=== PATIENT | male | born 1935 | race Two or more races ===

== ENCOUNTER → 2016-08-27 | Outpatient (CLI) | payer MEDICARE ==
--- NOTE | 2016-09-03 20:36 | CONS ---
DATE OF CONSULTATION: 08/27/2016 This patient is a 80-year-old gentleman who has been evaluated in the sleep center for possible obstructive sleep apnea/hypopnea syndrome. HISTORY OF PRESENT ILLNESS/SLEEP-WAKE EVALUATION: This patient was diagnosed with obstructive sleep apnea in 2014. In 2017 apnea/hypopnea index was ( ) . Patient was recommended usage of CPAP with a pressure of 9 cm of water. Patient used it for more than 4 hours 73% of the time with apnea/hypopnea index 4.8 with borderline leak. He sleeps during the night for about 6 hours with different time. No problem with falling asleep. He has a TV set in the bedroom. He sleeps on the side or back position. No awakenings from sleep. No snoring while using his machine. Universal Sleepiness Scale is only 2. The patient came recently from [place]. Past medical history is positive for: 1. Hypertension. 2. Hyperlipidemia. 3. Bladder cancer. ALLERGIES: DUST AND POLLEN. PAST SURGICAL HISTORY: Status post prostate surgery in March of 2016. MEDICATIONS: 1. Hydrochlorothiazide. 2. Niacin. The patient did not bring his list of medications; Pharmacy to call. SOCIAL HISTORY: The patient quit smoking more than 30 years ago. Alcohol consumption occasional. REVIEW OF SYSTEMS: No fevers. No double vision. No recent chest pain. No shortness of breath. No abdominal pain. No bleeding episodes. No blood in urine. No seizure episodes. FAMILY HISTORY: Hypertension, hyperlipidemia, stroke, arthritis, snoring, headaches, cancer. PHYSICAL EXAM: The patient is a pleasant 80-year-old gentleman without distress. VITAL SIGNS: Blood pressure 86/87, heart rate 79, respiratory rate 18, height 68 , weight 223.8, BMI 34. Neck 18.5 inches in circumference. Temperature 98.4. Oxygen saturation on room air 94%. GENERAL: A pleasant patient without distress. HEENT: PERRLA. EOMI. Evaluation of oropharynx showed tongue protrudes midline. Low position of soft palate. NECK: Supple. No JVD. Thyroid is not palpable. LUNGS: Clear to percussion and to auscultation. Good air exchange. No wheezing or rhonchi. HEART: S1, S2 regular. No murmurs, gallops or rubs. ABDOMEN: Obese. EXTREMITIES: No clubbing or cyanosis. ARCHITECT MANAGER: Awake, alert and oriented x3. Cranial nerves 2 through 7 are intact. There is no fasciculation or atrophy noted. No focal deficits observed. IMPRESSION: 1. Obstructive sleep apnea/hypopnea syndrome. Patient is on treatment with CPAP at 9 cm of water, and recent reading from his machine indicated good compliance with treatment and efficacy of treatment. 2. Obesity. 3. Hyperlipidemia. 4. Hypertension. 5. History of bladder carcinoma. 6. Status post prostate surgery. 7. Allergy to dust, pollen, ragweed. PLAN: 1. Continue treatment with CPAP every night for the whole night. 2. Losing weight. 3. Sleep hygiene with regular time in bed for at least 8 hours. 4. No driving if feeling any sleepiness. 5. Prescription for all necessary CPAP supplies. 6. Follow-up visit in 6 months. Thank you for allowing me to participate in the management of your patient. Sincerely, Joseph Hay. , PhD, FAASM. Diplomat of [place] [employer], Sleep Medicine Board by [place] [employer] [place] [employer] Abrasive Grinder of [facility] [place] [facility]
== END | disposition home or self-care (01) ==
LOC: SLEEP 13:19
PROVIDERS: ATTEND Internal Medicine
DX: G47.33 Obstructive sleep apnea (adult) (pediatric) (principal); E66.9 Obesity, unspecified; E78.5 Hyperlipidemia, unspecified; I10 Essential (primary) hypertension; Z85.51 Personal history of malignant neoplasm of bladder; Z91.048 Other nonmedicinal substance allergy status; Z79.899 Other long term (current) drug therapy; Z87.891 Personal history of nicotine dependence
CPT/HCPCS: 99201

== ENCOUNTER → 2018-09-22 | Outpatient (CLI) | payer MEDICARE ==
--- NOTE | 2018-09-22 19:26 | PN ---
PROGRESS NOTE DATE OF SERVICE: 09/22/2018 This 83-year-old gentleman who has been followed in the Sleep Center for treatment of obstructive sleep apnea-hypopnea syndrome. The patient continued to use CPAP equipment, but sometimes has problems with the mask. [place] Sleepiness Scale today is 4. I checked CPAP unit. CPAP pressure is 9 cm of water. Usage is 20/30 nights. Average usage is 3.7 hours. Leak is 25 L/minute. Apnea-hypopnea index for the last month only 2.4, which is normal. Mask is old more than 2 years. MEDICATIONS: Hydrochlorothiazide, niacin. PHYSICAL EXAM: Patient in no distress. BP 142/88, HR 70, RR 16, height 5 feet 7 inches, weight 231 pounds. Body mass index 35.6, temperature 98.9, oxygen saturation at room air 95%. HEENT: Oropharynx low position of soft palate. Mallampati 3. Neck Supple, no JVD. Thyroid is not palpable. LUNGS Clear to percussion and to auscultation. Good air exchange. No wheezing or rhonchi. HEART S1, S2 regular. No murmurs, gallops, or rubs. ABDOMEN: Obese. Soft and nontender. Bowel sounds are present. No organomegaly appreciated. EXTREMITIES No clubbing or cyanosis. PET SUPPLIES SALESPERSON Awake, alert, and oriented X3. Cranial nerves 2 to 7 intact. There is no fasciculation or atrophy. noted. No focal deficits observed. IMPRESSION: 1. Obstructive sleep apnea-hypopnea syndrome. The patient continues usage of the CPAP but had some problems with the mask, Mask is old. Normal aspiration on CPAP. 2. Obesity. 3. Hyperlipidemia. 4. Hypertension. 5. History of bladder carcinoma. 6. Status post prostate surgery. 7. ALLERGY TO DUST, POLLEN AND RED MEAT. PLAN: 1. Prescription for all necessary CPAP supplies including full-face mask. Presently, patient using Simplus medium size, tube filters to continue using CPAP equipment every night. 2. Losing weight. 3. Sleep hygiene with regular time bed for at least 8 hours. 4. No driving if feeling sleepiness. Thank you very much for allowing me to participate in management of your patient. Sincerely, Joseph Hay MD, PhD, FAASM Diplomat of [employer] [employer] [place] [employer] Lead Neurodiagnostic Technologist of [facility] [place] MMODL / IJN: [id number] /
== END | disposition home or self-care (01) ==
LOC: SLEEP 14:05
PROVIDERS: ATTEND Internal Medicine
DX: G47.33 Obstructive sleep apnea (adult) (pediatric) (principal); E66.9 Obesity, unspecified; E78.5 Hyperlipidemia, unspecified; I10 Essential (primary) hypertension; J30.89 Other allergic rhinitis; J30.1 Allergic rhinitis due to pollen; Z68.35 Body mass index [BMI] 35.0-35.9, adult; Z85.51 Personal history of malignant neoplasm of bladder; Z99.89 Dependence on other enabling machines and devices; Z98.890 Other specified postprocedural states; Z79.899 Other long term (current) drug therapy; Z91.018 Allergy to other foods

== ENCOUNTER → 2020-11-13 | Outpatient (CLI) | payer MEDICARE ==
--- NOTE | 2020-11-13 20:13 | SFUN ---
SLEEP CENTER FOLLOW UP NOTE DATE OF SERVICE: 11/13/2020 This 85-year-old gentleman has been followed in Sleep Center for treatment of obstructive sleep apnea-hypopnea syndrome. I saw the patient about 2 years ago. He continues to use his CPAP equipment every night but recently has had problems with his machine. The machine is not working well. There is some sign on the screen that the machine is not working; there is some mistake there. [place] Sleepiness Scale is 3. I checked his CPAP unit. It is very noisy. Pressure is 9 cm of water. For the last month, usage is 14/30 nights and 5/30 nights for more than 4 hours, average 3.7 hours per night. Leak is 2 L/minute. Apnea-hypopnea index is 5.0, which is borderline. MEDICATIONS: Hydrochlorothiazide, niacin, simvastatin. PHYSICAL EXAMINATION: GENERAL: Pleasant patient in no distress. VITAL SIGNS: BP 122/77, HR 79, RR 15, height 5 feet 8-1/2 inches, weight 233.0 pounds, temperature 97.3, oxygen saturation at room air 95%. Body mass index 34.9. HEENT: PERRLA, EOMI, evaluation of oropharynx showed tongue protrudes midline. Low position of soft palate; Mallampati III. NECK: Supple, no JVD. Thyroid is not palpable. LUNGS: Clear to percussion and to auscultation. Good air exchange. No wheezing or rhonchi. HEART: S1, S2 regular. No murmurs, gallops, or rubs. ABDOMEN: Obese. EXTREMITIES: No clubbing or cyanosis. DISPOSAL MAN: Awake, alert, and oriented X3. Cranial nerves 2 to 7 intact. There is no fasciculation or atrophy. noted. No focal deficits observed. IMPRESSION: 1. Obstructive sleep apnea-hypopnea syndrome. The patient's CPAP unit does not work well and is very noisy. While able to use the machine, the apnea-hypopnea index is borderline at 5.0 with the pressure 9 cm of water. 2. Obesity. 3. Hyperlipidemia. 4. Hypertension. 5. History of bladder carcinoma. 6. Status post prostate surgery. 7. Allergy to dust, pollen. PLAN: 1. Prescription to repair or replace CPAP unit with a new unit with automatic regimen of pressure 5-12 cm of water. 2. Patient will continue to use PAP equipment every night for the whole night. 3. Sleep hygiene with regular time in bed for at least 7-1/2 to 8 hours. 4. Precautions related to driving. No driving if feeling sleepiness. 5. I will maintain all necessary prescription for PAP supplies including mask, tube, filters. 6. Watching weight. 7. Follow-up visit in 6 months or earlier if patient has any problems. Thank you very much for allowing me to participate in the management of your patient. Sincerely, Joseph Hay MD, PhD, FAASM Diplomat of [place] [employer] Sleep Medicine Board of [place] [employer] Medicine Machine Wedger of [facility] [place] MMODL / IJN: [id number] /
== END ==
LOC: SLEEP 13:05
PROVIDERS: ATTEND Internal Medicine
DX: G47.33 Obstructive sleep apnea (adult) (pediatric) (principal); E66.9 Obesity, unspecified; E78.5 Hyperlipidemia, unspecified; I10 Essential (primary) hypertension; Z85.51 Personal history of malignant neoplasm of bladder; Z98.890 Other specified postprocedural states; Z91.048 Other nonmedicinal substance allergy status; Z99.89 Dependence on other enabling machines and devices; Z68.34 Body mass index [BMI] 34.0-34.9, adult

== ENCOUNTER 2020-12-04 20:39 | Inpatient (IN) | payer MEDICARE ==
[2020-12-04] MEDS ORDERED: SODIUM CHLORIDE 0.9% 1,000 ML IV STA (21:18)
[2020-12-04] MEDS ORDERED: ONDANSETRON 4 MG/2 ML VIAL IVP STA (21:19)
--- NOTE | 2020-12-04 21:27 | ED ---
Nausea/Vomiting/Diarrhea HPI - General Chief complaint: Nausea/Vomiting/Diarrhea Stated complaint: High BP Time Seen by Provider: 12/04/20 21:11 Source: patient, RN notes reviewed Mode of arrival: wheelchair Limitations: no limitations - History of Present Illness Initial comments: Patient ate 85-year-old male presented to the ER for nausea vomiting. Patient states he has been feeling under the weather for past week with chills and fever like symptoms, with acute episode of nausea and vomiting today around 4:30. Patient reports feeling shaking, dizziness, sweating with generalized weakness during episode with relief after vomiting episode. Patient reports generalized fullness in LLQ of abdomen. Patient's is possible sick contact with cold- like symptoms for 1 week. - Related Data Home Medications Medication Instructions Recorded Confirmed Cholecalciferol (Vitamin D3) 125 mcg PO BID 12/04/20 12/04/20 [Vitamin D3 (125 MCG = 5,000 IU)] Cyanocobalamin (Vitamin B-12) 1,000 mcg PO DAILY 12/04/20 12/04/20 [Vitamin B-12] Docusate [Colace] 100 mg PO DAILY 12/04/20 12/04/20 Dutasteride 0.5 mg PO DAILY 12/04/20 12/04/20 Glucosam/Itz-Msm1/C/Tyrese/Bosw 1 tab PO BID 12/04/20 12/04/20 [Pgggmzfayhy-Qnfsmccemyc-MDQ Tb] Latanoprost [Xalatan 0.005%] 1 drop BOTH EYES HS 12/04/20 12/04/20 Lisinopril [Prinivil] 10 mg PO DAILY 12/04/20 12/04/20 Magnesium Oxide [Arambula] 500 mg PO DAILY 12/04/20 12/04/20 [place]-3 Fatty Acids [[place]-3] 1,000 mg PO DAILY 12/04/20 12/04/20 Simvastatin [Zocor] 40 mg PO HS 12/04/20 12/04/20 Timolol 0.5% Ophth Gel Forming 1 drop BOTH EYES DAILY 12/04/20 12/04/20 [Timoptic-Xe 0.5% Gel Form] Zinc 50 mg PO DAILY 12/04/20 12/04/20 hydroCHLOROthiazide [Hydrodiuril] 12.5 mg PO DAILY 12/04/20 12/04/20 Allergies Allergy/AdvReac Type Severity Reaction Status Date / Time No Known Allergies Allergy Verified 12/04/20 23:27 Review of Systems ROS Statement: Those systems with pertinent positive or pertinent negative responses have been documented in the HPI. ROS Other: All systems not noted in ROS Statement are negative. Past Medical History Past Medical History: Cancer, COPD, Hyperlipidemia, Hypertension, Sleep Apnea/CPAP/BIPAP History of Any Multi-Drug Resistant Organisms: None Reported Past Surgical History: Bladder Surgery Past Psychological History: No Psychological Hx Reported Smoking Status: Never smoker Past Alcohol Use History: None Reported Past Drug Use History: None Reported General Exam Limitations: no limitations General appearance: alert, in no apparent distress Respiratory exam: Present: normal lung sounds bilaterally. Absent: respiratory distress, wheezes, rales, rhonchi, stridor Cardiovascular Exam: Present: regular rate, normal rhythm, normal heart sounds. Absent: systolic murmur, diastolic murmur, rubs, gallop, clicks GI/Abdominal exam: Present: tenderness (LLQ) Neurological exam: Present: alert, oriented X3, CN II-XII intact Skin exam: Present: warm, dry, intact, normal color. Absent: rash Course Vital Signs 12/04/20 12/04/20 12/04/20 20:49 21:45 22:00 Temperature 99.6 F Pulse Rate 110 H 94 96 Respiratory 16 22 22 Rate Blood Pressure 90/62 98/40 88/53 O2 Sat by Pulse 91 L 95 95 Oximetry 12/04/20 12/04/20 23:00 23:54 Temperature Pulse Rate 96 75 Respiratory 20 18 Rate Blood Pressure 103/70 99/61 O2 Sat by Pulse 96 97 Oximetry Medical Decision Making - Medical Decision Making 85-year-old male presented for generalized weakness, not feeling well, episode of vomiting. Patient's found to have urinary tract infection, mild hypotension, lactic acidosis. Patient wouldn't admitted for IV antibiotics UTI sepsis. Fluids were started at ideal body weight of [address] shows evidence of very enlarged prostate family states that he's had a biopsy is follow closely with urology. - Lab Data Result diagrams: 12/04/20 21:36 12/04/20 21:36 Lab Results 12/04/20 12/04/20 12/04/20 Range/Units 21:36 21:36 21:36 WBC 12.0 H (3.8-10.6) k/uL RBC 5.48 (4.30-5.90) m/uL Hgb 15.5 (13.0-17.5) gm/dL Hct 45.6 (39.0-53.0) % MCV 83.2 (80.0-100.0) fL MCH 28.3 (25.0-35.0) pg MCHC 34.0 (31.0-37.0) g/dL RDW 14.2 (11.5-15.5) % Plt Count 188 (150-450) k/uL MPV 8.6 Neutrophils % (Manual) 77 % Band Neuts % (Manual) 14 % Lymphocytes % (Manual) 4 % Monocytes % (Manual) 3 % Basophils % (Manual) 2 % Neutrophils # (Manual) 10.90 H (1.3-7.7) k/uL Lymphocytes # (Manual) 0.48 L (1.0-4.8) k/uL Monocytes # (Manual) 0.36 (0-1.0) k/uL Basophils # (Manual) 0.24 H (0-0.2) k/uL Nucleated RBCs 0 (0-0) /100 WBC Manual Slide Review Performed RBC Morphology Normal PT 11.0 (9.0-12.0) sec INR 1.0 (<1.2) APTT 22.2 (22.0-30.0) sec Sodium (137-145) mmol/L Potassium (3.5-5.1) mmol/L Chloride (98-107) mmol/L Carbon Dioxide (22-30) mmol/L Anion Gap mmol/L BUN (9-20) mg/dL Creatinine (0.66-1.25) mg/dL Est GFR (CKD-EPI)AfAm (>60 ml/min/1.73 sqM) Est GFR (CKD-EPI)NonAf (>60 ml/min/1.73 sqM) Glucose (74-99) mg/dL Plasma Lactic Acid Andrew (0.7-2.0) mmol/L Calcium (8.4-10.2) mg/dL Magnesium (1.6-2.3) mg/dL Total Bilirubin (0.2-1.3) mg/dL AST (17-59) U/L ALT (4-49) U/L Alkaline Phosphatase (38-126) U/L Troponin I (0.000-0.034) ng/mL Total Protein (6.3-8.2) g/dL Albumin (3.5-5.0) g/dL Urine Color Yellow Urine Appearance Cloudy (Clear) Urine pH 5.5 (5.0-8.0) Ur Specific [place] 1.017 (1.001-1.035) Urine Protein 1+ H (Negative) Urine Glucose (UA) Negative (Negative) Urine Ketones Trace H (Negative) Urine Blood Moderate H (Negative) Urine Nitrite Positive (Negative) Urine Bilirubin Negative (Negative) Urine Urobilinogen <2.0 (<2.0) mg/dL Ur Leukocyte Esterase Large H (Negative) Urine RBC 41 H (0-5) /hpf Urine WBC >182 H (0-5) /hpf Urine WBC Clumps Moderate H (None) /hpf Ur Squamous Epith Cells 2 (0-4) /hpf Amorphous Sediment Rare H (None) /hpf Urine Bacteria Many H (None) /hpf Hyaline Casts 12 H (0-2) /lpf Urine Mucus Occasional H (None) /hpf Coronavirus (PCR) (Not Detectd) 12/04/20 12/04/20 12/04/20 Range/Units 21:36 21:36 21:36 WBC (3.8-10.6) k/uL RBC (4.30-5.90) m/uL Hgb (13.0-17.5) gm/dL Hct (39.0-53.0) % MCV (80.0-100.0) fL MCH (25.0-35.0) pg MCHC (31.0-37.0) g/dL RDW (11.5-15.5) % Plt Count (150-450) k/uL MPV Neutrophils % (Manual) % Band Neuts % (Manual) % Lymphocytes % (Manual) % Monocytes % (Manual) % Basophils % (Manual) % Neutrophils # (Manual) (1.3-7.7) k/uL Lymphocytes # (Manual) (1.0-4.8) k/uL Monocytes # (Manual) (0-1.0) k/uL Basophils # (Manual) (0-0.2) k/uL Nucleated RBCs (0-0) /100 WBC Manual Slide Review RBC Morphology PT (9.0-12.0) sec INR (<1.2) APTT (22.0-30.0) sec Sodium 135 L (137-145) mmol/L Potassium 3.7 (3.5-5.1) mmol/L Chloride 100 (98-107) mmol/L Carbon Dioxide 26 (22-30) mmol/L Anion Gap 9 mmol/L BUN 28 H (9-20) mg/dL Creatinine 1.24 (0.66-1.25) mg/dL Est GFR (CKD-EPI)AfAm 62 (>60 ml/min/1.73 sqM) Est GFR (CKD-EPI)NonAf 53 (>60 ml/min/1.73 sqM) Glucose 100 H (74-99) mg/dL Plasma Lactic Acid Andrew 2.7 H* (0.7-2.0) mmol/L Calcium 10.2 (8.4-10.2) mg/dL Magnesium 1.8 (1.6-2.3) mg/dL Total Bilirubin 0.9 (0.2-1.3) mg/dL AST 137 H (17-59) U/L ALT 69 H (4-49) U/L Alkaline Phosphatase 68 (38-126) U/L Troponin I 0.012 (0.000-0.034) ng/mL Total Protein 6.9 (6.3-8.2) g/dL Albumin 4.0 (3.5-5.0) g/dL Urine Color Urine Appearance (Clear) Urine pH (5.0-8.0) Ur Specific [place] (1.001-1.035) Urine Protein (Negative) Urine Glucose (UA) (Negative) Urine Ketones (Negative) Urine Blood (Negative) Urine Nitrite (Negative) Urine Bilirubin (Negative) Urine Urobilinogen (<2.0) mg/dL Ur Leukocyte Esterase (Negative) Urine RBC (0-5) /hpf Urine WBC (0-5) /hpf Urine WBC Clumps (None) /hpf Ur Squamous Epith Cells (0-4) /hpf Amorphous Sediment (None) /hpf Urine Bacteria (None) /hpf Hyaline Casts (0-2) /lpf Urine Mucus (None) /hpf Coronavirus (PCR) (Not Detectd) 12/04/20 Range/Units 21:36 WBC (3.8-10.6) k/uL RBC (4.30-5.90) m/uL Hgb (13.0-17.5) gm/dL Hct (39.0-53.0) % MCV (80.0-100.0) fL MCH (25.0-35.0) pg MCHC (31.0-37.0) g/dL RDW (11.5-15.5) % Plt Count (150-450) k/uL MPV Neutrophils % (Manual) % Band Neuts % (Manual) % Lymphocytes % (Manual) % Monocytes % (Manual) % Basophils % (Manual) % Neutrophils # (Manual) (1.3-7.7) k/uL Lymphocytes # (Manual) (1.0-4.8) k/uL Monocytes # (Manual) (0-1.0) k/uL Basophils # (Manual) (0-0.2) k/uL Nucleated RBCs (0-0) /100 WBC Manual Slide Review RBC Morphology PT (9.0-12.0) sec INR (<1.2) APTT (22.0-30.0) sec Sodium (137-145) mmol/L Potassium (3.5-5.1) mmol/L Chloride (98-107) mmol/L Carbon Dioxide (22-30) mmol/L Anion Gap mmol/L BUN (9-20) mg/dL Creatinine (0.66-1.25) mg/dL Est GFR (CKD-EPI)AfAm (>60 ml/min/1.73 sqM) Est GFR (CKD-EPI)NonAf (>60 ml/min/1.73 sqM) Glucose (74-99) mg/dL Plasma Lactic Acid Andrew (0.7-2.0) mmol/L Calcium (8.4-10.2) mg/dL Magnesium (1.6-2.3) mg/dL Total Bilirubin (0.2-1.3) mg/dL AST (17-59) U/L ALT (4-49) U/L Alkaline Phosphatase (38-126) U/L Troponin I (0.000-0.034) ng/mL Total Protein (6.3-8.2) g/dL Albumin (3.5-5.0) g/dL Urine Color Urine Appearance (Clear) Urine pH (5.0-8.0) Ur Specific [place] (1.001-1.035) Urine Protein (Negative) Urine Glucose (UA) (Negative) Urine Ketones (Negative) Urine Blood (Negative) Urine Nitrite (Negative) Urine Bilirubin (Negative) Urine Urobilinogen (<2.0) mg/dL Ur Leukocyte Esterase (Negative) Urine RBC (0-5) /hpf Urine WBC (0-5) /hpf Urine WBC Clumps (None) /hpf Ur Squamous Epith Cells (0-4) /hpf Amorphous Sediment (None) /hpf Urine Bacteria (None) /hpf Hyaline Casts (0-2) /lpf Urine Mucus (None) /hpf Coronavirus (PCR) Not Detected (Not Detectd) Disposition Clinical Impression: UTI (urinary tract infection), Sepsis Disposition: ADMITTED IP TO THIS [facility] Condition: Fair Referrals: Ant Crowder MD [Primary Care Provider] - 1-2 days
[2020-12-04 22:06] LABS: Calcium 10.2 mg/dL (8.4-10.2); Magnesium 1.8 mg/dL (1.6-2.3); Potassium 3.7 mmol/L (3.5-5.1); Total Bilirubin 0.9 mg/dL (0.2-1.3); Total Protein 6.9 g/dL (6.3-8.2)
[2020-12-04 22:11] LABS: Partial Thromboplastin Time 22.2 sec (22.0-30.0)
[2020-12-04 22:27] LABS: HCT 45.6 % (39.0-53.0); HGB 15.5 gm/dL (13.0-17.5); MCH 28.3 pg (25.0-35.0); MCV 83.2 fL (80.0-100.0); Mean Platelet Volume 8.6; Platelet Count 188 k/uL (150-450); RBC 5.48 m/uL (4.30-5.90); RDW 14.2 % (11.5-15.5)
--- NOTE | 2020-12-04 22:46 | XR ---
EXAMINATION TYPE: XR chest 2V DATE OF EXAM: 12/04/2020 COMPARISON: NONE HISTORY: Weakness. Nausea. TECHNIQUE: 2 views FINDINGS: Heart is normal. There is some mild subsegmental atelectasis left lung base. There are ches t leads. There are no hilar masses. IMPRESSION: Subsegmental atelectasis at the left lung base. Normal heart.
[2020-12-04] MEDS ORDERED: SODIUM CHLORIDE 0.9% 1,000 ML IV ONE (23:29)
[2020-12-04 23:30] LABS: Band Neutrophils % 14 %; Basophils # (M) 0.24 k/uL (0-0.2); Lymphocytes # (M) 0.48 k/uL (1.0-4.8); Monocytes # (M) 0.36 k/uL (0-1.0); Neutrophils % (M) 77 %; Nucleated Red Blood Cells 0 /100 WBC (0-0); Total Cells Counted 100
[2020-12-04 23:39] LABS: Amorphous Sediment,Urine Rare /hpf; Appearance,Urine Cloudy (Clear); Bacteria,Urine Many /hpf; Bilirubin,Urine Negative (Negative); Blood,Urine Moderate (Negative); Color,Urine Yellow; Glucose,Urine (UA) Negative (Negative); Hyaline Casts,Urine 12 /lpf (0-2); Ketones,Urine Trace (Negative); Leukocyte Esterase,Urine Large (Negative); Mucus,Urine Occasional /hpf; Nitrite,Urine Positive (Negative); PH, Urine 5.5 (5.0-8.0); Protein,Urine 1+ (Negative); RBC,Urine 41 /hpf (0-5); Specific Gravity,Urine 1.017 (1.001-1.035); Squamous Epithelial Cell,Urine 2 /hpf (0-4); Urobilinogen,Urine <2.0 mg/dL (<2.0); WBC,Urine >182 /hpf (0-5)
[2020-12-05] MEDS: SODIUM CHLORIDE 0.9% 1,000 ML IV SCH ×4 (00:12→21:23)
--- NOTE | 2020-12-05 00:17 | CT ---
EXAMINATION TYPE: CT abdomen pelvis w con DATE OF EXAM: 12/04/2020 COMPARISON: HISTORY: stomach upset. hx of bladder cx CT DLP: 1917.2 mGycm Automated exposure control for dose reduction was used. CONTRAST: Performed with IV Contrast, patient injected with 80 mL of Isovue 300. Images obtained from the diaphragm to the floor the pelvis with IV contrast. There is mild subsegmental atelectasis at the lung bases. There is no pericardial effusion. There is no pleural effusion. There is some mild fatty infiltration of the liver. Spleen stomach pancreas gallbladder appear intact . The bile ducts are nondilated. There is no adrenal mass. There is small hiatal hernia. Kidneys show satisfactory contrast opacificat ion. There is 1 cm calculus in the left renal pelvis. There is no hydronephrosis. Ureters are not dil ated. There are left-sided renal cortical cysts that measure up to 2 cm. There is no retroperitoneal adenopathy. Appendix appears normal. There is marked enlargement of the prostate that measures 9 cm. There is small right-sided inguinal hernia that contains fat. There is no free fluid in the pelvis. There is no mesenteric edema. There is no ascites or free air. There is no bowel obstruction. There i s minimal urinary bladder wall thickening. There is some mild rectal wall thickening at the anus. There is no evidence of focal bone destruction. Lumbar vertebra appear intact. There is multilevel sp ondylotic changes in the lumbar spine. There is no compression fracture. There is mild multilevel hyp ertrophic facet arthropathy. The bony pelvis is intact. The hip joints are intact. IMPRESSION: Markedly enlarged prostate suggestive of tumor. Mild urinary bladder wall thickening suggestive of so me nonspecific cystitis. Nonobstructing left renal calculus. Mild sigmoid diverticulosis without diverticulitis. Mild anal wall thickening. There is possible mild anal prolapse. Mild fatty infiltration of the liver. Subsegmental mild atelectasis at the lung bases.
[2020-12-05] MEDS ORDERED: NALOXONE 0.4 MG/ML 1 ML VIAL IV PRN (00:18)
[2020-12-05] MEDS ORDERED: ONDANSETRON 4 MG/2 ML VIAL IVP PRN (00:18)
[2020-12-05] MEDS ORDERED: ACETAMINOPHEN TAB 325 MG TAB PO PRN (00:18)
[2020-12-05] MEDS: MAGNESIUM OXIDE 400 MG TAB PO SCH (08:35)
[2020-12-05] MEDS: FINASTERIDE 5 MG TAB PO SCH (08:35)
[2020-12-05] MEDS: ZINC SULFATE 220 MG CAP PO SCH (08:35)
[2020-12-05] MEDS: DOCUSATE 100 MG CAP PO SCH (08:35)
[2020-12-05] MEDS: lisinopriL 10 MG TAB PO SCH (08:35)
[2020-12-05] MEDS: TIMOLOL 0.5% OPHTH DROPS 5 ML BTL BOTH EYES SCH ×2 (08:36→20:53)
[2020-12-05] MEDS: hydroCHLOROthiazide 12.5 MG CAP PO SCH (08:37)
[2020-12-05 08:56] LABS: Albumin 3.4 g/dL (3.5-5.0); Albumin/Globulin Ratio 1.2; Bilirubin,Unconjugated 0.3 mg/dL (0.0-1.1); Globulin 2.8 g/dL; Total Bilirubin 0.8 mg/dL (0.2-1.3); Total Protein 6.2 g/dL (6.3-8.2)
[2020-12-05] MEDS ORDERED: NON FORMULARY DRUG (Omega-3 Fatty Acids [Omega-3] 1,000 MG Capsule) PO SCH (09:00)
--- NOTE | 2020-12-05 11:43 | P.HPIM ---
History of Present Illness This is a pleasant 85 years old male with past medical history of COPD, Hyperlipidemia, Hypertension, Sleep Apnea/CPAP/BIPAP Patient presents because of shaking and chills of one-day duration. He vomited twice in the car coming to the hospital with no blood. He denies abdominal pain. He had no bowel movement since yesterday. Patient reports difficulty in voiding with dysuria for the last 3-4 days. No abdominal pain or back pain. He denies dyspnea. Has chronic cough with phlegm with no recent worsening as he describes. He denies chest pain He denies smoking, alcohol or illicit drugs He knows about his enlarged prostate and he follows up with urologist on [address] office Walking with no difficulties with no focal Vitals are stable. Blood pressure is low normal He uses CPAP machine at home but it is broken recently Labs showing mild leukocytosis of 12.0 INR is normal, BMP is unremarkable. Liver enzymes are slightly elevated with AST 137 and ALT 69 Urine analysis is suspicious for infection. Urine culture is pending. Coronavirus not detected CT of the abdomen and pelvis: Markedly enlarged prostate suggestive of a tumor. Mild urinary bladder wall thickening suggestive of some nonspecific cystitis. Non-obstructing left renal calculus EKG shows sinus tachycardia and 110 with first degree AV block and no significant ST-T changes. QTC is 433 chest x-ray: Atelectasis in the left lung base In the emergency room patient received ceftriaxone and normal saline Review of Systems CONSTITUTIONAL: No fever, no malaise, no fatigue. HEENT: No recent visual problems or hearing problems. Denied any sore throat. CARDIOVASCULAR: No orthopnea, PND, no palpitations, no syncope. PULMONARY: No shortness of breath, no cough, no hemoptysis. GASTROINTESTINAL: No diarrhea, no nausea, no vomiting, no abdominal pain. Normoactive bowel sounds. NEUROLOGICAL: No headaches, no weakness, no numbness. HEMATOLOGICAL: Denies any bleeding or petechiae. GENITOURINARY: Denies any burning micturition, frequency, or urgency. MUSCULOSKELETAL/RHEUMATOLOGICAL: Denies any joint pain, swelling, or any muscle pain. ENDOCRINE: Denies any polyuria or polydipsia. Past Medical History Past Medical History: Cancer, COPD, Hyperlipidemia, Hypertension, Sleep Apnea/CPAP/BIPAP History of Any Multi-Drug Resistant Organisms: None Reported Past Surgical History: Bladder Surgery Past Anesthesia/Blood Transfusion Reactions: No Reported Reaction Past Psychological History: No Psychological Hx Reported Smoking Status: Former smoker Past Alcohol Use History: None Reported Past Drug Use History: None Reported - Past Family History Daughter(s) Family Medical History: Cancer Additional Family Medical History / Comment(s): Breast cancer Medications and Allergies Home Medications Medication Instructions Recorded Confirmed Type Cholecalciferol (Vitamin D3) 125 mcg PO BID 12/04/20 12/04/20 History [Vitamin D3 (125 MCG = 5,000 IU)] Cyanocobalamin (Vitamin B-12) 1,000 mcg PO DAILY 12/04/20 12/04/20 History [Vitamin B-12] Docusate [Colace] 100 mg PO DAILY 12/04/20 12/04/20 History Dutasteride 0.5 mg PO DAILY 12/04/20 12/04/20 History Glucosam/Itz-Msm1/C/Tyrese/Bosw 1 tab PO BID 12/04/20 12/04/20 History [Ikyycnyzbjs-Lzokujdarpj-LON Tb] Latanoprost [Xalatan 0.005%] 1 drop BOTH EYES HS 12/04/20 12/04/20 History Lisinopril [Prinivil] 10 mg PO DAILY 12/04/20 12/04/20 History Magnesium Oxide [Arambula] 500 mg PO DAILY 12/04/20 12/04/20 History [place]-3 Fatty Acids [[place]-3] 1,000 mg PO DAILY 12/04/20 12/04/20 History Simvastatin [Zocor] 40 mg PO HS 12/04/20 12/04/20 History Timolol 0.5% Ophth Gel Forming 1 drop BOTH EYES DAILY 12/04/20 12/04/20 History [Timoptic-Xe 0.5% Gel Form] Zinc 50 mg PO DAILY 12/04/20 12/04/20 History hydroCHLOROthiazide [Hydrodiuril] 12.5 mg PO DAILY 12/04/20 12/04/20 History Allergies Allergy/AdvReac Type Severity Reaction Status Date / Time No Known Allergies Allergy Verified 12/04/20 23:27 Physical Exam Vitals: Vital Signs Temp Pulse Pulse Resp BP BP Pulse Ox 12/05/20 04:45 98.2 F 83 18 105/64 95 12/05/20 03:19 16 12/05/20 02:00 97.4 F L 94 16 99/63 90 L 12/05/20 01:30 98.6 F 83 19 97/57 97 12/04/20 23:54 75 18 99/61 97 12/04/20 23:00 96 20 103/70 96 12/04/20 22:00 96 22 88/53 95 12/04/20 21:45 94 22 98/40 95 12/04/20 20:49 99.6 F 110 H 16 90/62 91 L Intake and Output 12/04/20 12/05/20 12/05/20 22:59 06:59 14:59 Intake Total 540 Balance 540 Intake: Intake, IV Titration 540 Amount Sodium Chloride 0.9% 1, 540 000 ml @ 130 mls/hr IV . Q7H42M [facility] Rx#:[id number] Other: # Voids 1 Weight 102.058 kg 102.058 kg GENERAL: The patient is alert and oriented x3, not in any acute distress. Well developed, well nourished. HEENT: Pupils are round and equally reacting to light. EOMI. No scleral icterus. No conjunctival pallor. Normocephalic, atraumatic. No pharyngeal erythema. No thyromegaly. CARDIOVASCULAR: S1 and S2 present. No murmurs, rubs, or gallops. PULMONARY: Chest is clear to auscultation, no wheezing or crackles. ABDOMEN: Soft, nontender, nondistended, normoactive bowel sounds. No palpable organomegaly. MUSCULOSKELETAL: No joint swelling or deformity. EXTREMITIES: No cyanosis, clubbing, or pedal edema. NEUROLOGICAL: Gross neurological examination did not reveal any focal deficits. SKIN: No rashes. No petechiae Results CBC & Chem 7: 12/04/20 21:36 12/04/20 21:36 Labs: Abnormal Lab Results - Last 24 Hours (Table) 12/04/20 12/04/20 12/04/20 Range/Units 21:36 21:36 21:36 WBC 12.0 H (3.8-10.6) k/uL Neutrophils # (Manual) 10.90 H (1.3-7.7) k/uL Lymphocytes # (Manual) 0.48 L (1.0-4.8) k/uL Basophils # (Manual) 0.24 H (0-0.2) k/uL Sodium 135 L (137-145) mmol/L BUN 28 H (9-20) mg/dL Glucose 100 H (74-99) mg/dL Plasma Lactic Acid Andrew (0.7-2.0) mmol/L AST 137 H (17-59) U/L ALT 69 H (4-49) U/L Urine Protein 1+ H (Negative) Urine Ketones Trace H (Negative) Urine Blood Moderate H (Negative) Ur Leukocyte Esterase Large H (Negative) Urine RBC 41 H (0-5) /hpf Urine WBC >182 H (0-5) /hpf Urine WBC Clumps Moderate H (None) /hpf Amorphous Sediment Rare H (None) /hpf Urine Bacteria Many H (None) /hpf Hyaline Casts 12 H (0-2) /lpf Urine Mucus Occasional H (None) /hpf 12/04/20 Range/Units 21:36 WBC (3.8-10.6) k/uL Neutrophils # (Manual) (1.3-7.7) k/uL Lymphocytes # (Manual) (1.0-4.8) k/uL Basophils # (Manual) (0-0.2) k/uL Sodium (137-145) mmol/L BUN (9-20) mg/dL Glucose (74-99) mg/dL Plasma Lactic Acid Andrew 2.7 H* (0.7-2.0) mmol/L AST (17-59) U/L ALT (4-49) U/L Urine Protein (Negative) Urine Ketones (Negative) Urine Blood (Negative) Ur Leukocyte Esterase (Negative) Urine RBC (0-5) /hpf Urine WBC (0-5) /hpf Urine WBC Clumps (None) /hpf Amorphous Sediment (None) /hpf Urine Bacteria (None) /hpf Hyaline Casts (0-2) /lpf Urine Mucus (None) /hpf Microbiology - Last 24 Hours (Table) 12/04/20 21:36 Urine Culture - Preliminary Urine,Voided Thrombosis Risk Factor Assmnt - Choose All That Apply Any of the Below Risk Factors Present?: Yes Each Factor Represents 1 point: Abnormal pulmonary function (COPD), Obesity (BMI >25) Each Risk Factor Represents 3 Points: Age 75 years or older Other congenital or acquired thrombophilia - If yes, enter type in comment: No Thrombosis Risk Factor Assessment Total Risk Factor Score: 5 Thrombosis Risk Factor Assessment Level: High Risk Assessment and Plan Assessment: Acute urinary tract infection Left nonobstructing renal calculus Enlarged prostate Hyperlipidemia Hypertension History of sleep apnea on CPAP/BiPAP COPD, not acute exacerbation Plan: this is a pleasant 85 years old male who presents with UTI Continue with ceftriaxone, gentle hydration and follow-up urine cultures urology consult Labs and medication were reviewed.. Continue same treatment. Continue with symptomatic treatment. Resume home medication. Monitor lytes and vitals. DVT and GI prophylaxis. Further recommendations depends on the clinical course of the patient DVT prophylaxis: Subcutaneous heparin GI Prophylaxis: Pepcid PT/OT: Pending Prognosis is guarded
[2020-12-05] MEDS: DICLOFENAC SODIUM GEL 100 GM TUBE TOPICAL SCH ×3 (12:27→21:23)
--- NOTE | 2020-12-05 14:40 | P.GSCN ---
History of Present Illness Consult date: 12/05/20 History of present illness: 85-year-old gentleman who had fever chills and discomfort urination and was admitted to the hospital for urinary tract infection with sepsis. He was evaluated emergency room and found to have a very enlarged prostate as well as a 1 cm left renal pelvic stone. For this reason we are asked see the patient. The patient is interviewed at the bedside with his and daughter present. He is feeling much better since he has been on the antibiotics. The patient has a urologic history. He is last seen by me in 2010. He was seen for an elevated PSA. At that point in time he had a very large prostate measured at 211 mL. He did not have any treatment. He [place]ard in [place] and eventually had hematuria and was evaluated by urologist (). It sounds by his history that he probably had 2 laser prostatectomy Zinman and eventual transurethral resection of bladder tumor. Based on his history it sounds low-grade and noninvasive as he did not have any intravesical chemotherapy. He subsequently has been followed by at [facility] with negative cystoscopies. Patient has known about the kidney stones. He has occasional backache on the left side. He has not had treatment for it and does not request treatment of this point in time. Denies difficulty urinating. He only gets up once at night. He has occasional urgency. Is been no hematuria or incontinence. He has been on dutasteride and his last PSA was 4 Past Medical History Past Medical History: Cancer, COPD, Hyperlipidemia, Hypertension, Sleep Apnea/CPAP/BIPAP History of Any Multi-Drug Resistant Organisms: None Reported Past Surgical History: Bladder Surgery Past Anesthesia/Blood Transfusion Reactions: No Reported Reaction Past Psychological History: No Psychological Hx Reported Smoking Status: Former smoker Past Alcohol Use History: None Reported Past Drug Use History: None Reported - Past Family History Daughter(s) Family Medical History: Cancer Additional Family Medical History / Comment(s): Breast cancer Medications and Allergies Home Medications Medication Instructions Recorded Confirmed Type Cholecalciferol (Vitamin D3) 125 mcg PO BID 12/04/20 12/04/20 History [Vitamin D3 (125 MCG = 5,000 IU)] Cyanocobalamin (Vitamin B-12) 1,000 mcg PO DAILY 12/04/20 12/04/20 History [Vitamin B-12] Docusate [Colace] 100 mg PO DAILY 12/04/20 12/04/20 History Dutasteride 0.5 mg PO DAILY 12/04/20 12/04/20 History Glucosam/Itz-Msm1/C/Tyrese/Bosw 1 tab PO BID 12/04/20 12/04/20 History [Lkiqfolqjlz-Hefenkyebin-UKO Tb] Latanoprost [Xalatan 0.005%] 1 drop BOTH EYES HS 12/04/20 12/04/20 History Lisinopril [Prinivil] 10 mg PO DAILY 12/04/20 12/04/20 History Magnesium Oxide [Arambula] 500 mg PO DAILY 12/04/20 12/04/20 History [place]-3 Fatty Acids [[place]linger-3] 1,000 mg PO DAILY 12/04/20 12/04/20 History Simvastatin [Zocor] 40 mg PO HS 12/04/20 12/04/20 History Timolol 0.5% Ophth Gel Forming 1 drop BOTH EYES DAILY 12/04/20 12/04/20 History [Timoptic-Xe 0.5% Gel Form] Zinc 50 mg PO DAILY 12/04/20 12/04/20 History hydroCHLOROthiazide [Hydrodiuril] 12.5 mg PO DAILY 12/04/20 12/04/20 History Allergies Allergy/AdvReac Type Severity Reaction Status Date / Time No Known Allergies Allergy Verified 12/04/20 23:27 Surgical - Exam Vital Signs Temp Pulse Resp BP Pulse Ox 99.6 F 110 H 16 90/62 91 L 12/04/20 20:49 12/04/20 20:49 12/04/20 20:49 12/04/20 20:49 12/04/20 20:49 - General well developed, well nourished, no distress, obese - Eyes PERRL - ENT no hearing loss - Neck trachea midline - Respiratory normal expansion, normal respiratory effort - Cardiovascular Rhythm: regular - Abdomen Abdomen: soft, non tender - Genitourinary normal penis with no external lesions, testicles present - Musculoskeletal normal posture - Psychiatric oriented to time, oriented to person, oriented to place, speech is normal, memory intact Results - Labs 12/04/20 21:36 12/04/20 21:36 Abnormal Lab Results - Last 24 Hours (Table) 12/04/20 12/04/20 12/04/20 Range/Units 21:36 21:36 21:36 WBC 12.0 H (3.8-10.6) k/uL Neutrophils # (Manual) 10.90 H (1.3-7.7) k/uL Lymphocytes # (Manual) 0.48 L (1.0-4.8) k/uL Basophils # (Manual) 0.24 H (0-0.2) k/uL Sodium 135 L (137-145) mmol/L BUN 28 H (9-20) mg/dL Glucose 100 H (74-99) mg/dL Plasma Lactic Acid Andrew (0.7-2.0) mmol/L AST 137 H (17-59) U/L ALT 69 H (4-49) U/L Alkaline Phosphatase (38-126) U/L Total Protein (6.3-8.2) g/dL Albumin (3.5-5.0) g/dL Urine Protein 1+ H (Negative) Urine Ketones Trace H (Negative) Urine Blood Moderate H (Negative) Ur Leukocyte Esterase Large H (Negative) Urine RBC 41 H (0-5) /hpf Urine WBC >182 H (0-5) /hpf Urine WBC Clumps Moderate H (None) /hpf Amorphous Sediment Rare H (None) /hpf Urine Bacteria Many H (None) /hpf Hyaline Casts 12 H (0-2) /lpf Urine Mucus Occasional H (None) /hpf 12/04/20 12/05/20 Range/Units 21:36 05:20 WBC (3.8-10.6) k/uL Neutrophils # (Manual) (1.3-7.7) k/uL Lymphocytes # (Manual) (1.0-4.8) k/uL Basophils # (Manual) (0-0.2) k/uL Sodium (137-145) mmol/L BUN (9-20) mg/dL Glucose (74-99) mg/dL Plasma Lactic Acid Andrew 2.7 H* (0.7-2.0) mmol/L AST 80 H (17-59) U/L ALT 67 H (4-49) U/L Alkaline Phosphatase 34 L (38-126) U/L Total Protein 6.2 L (6.3-8.2) g/dL Albumin 3.4 L (3.5-5.0) g/dL Urine Protein (Negative) Urine Ketones (Negative) Urine Blood (Negative) Ur Leukocyte Esterase (Negative) Urine RBC (0-5) /hpf Urine WBC (0-5) /hpf Urine WBC Clumps (None) /hpf Amorphous Sediment (None) /hpf Urine Bacteria (None) /hpf Hyaline Casts (0-2) /lpf Urine Mucus (None) /hpf Microbiology - Last 24 Hours (Table) 12/04/20 21:36 Urine Culture - Preliminary Urine,Voided Diabetes panel 12/04/20 12/05/20 Range/Units 21:36 05:20 Sodium 135 L (137-145) mmol/L Potassium 3.7 (3.5-5.1) mmol/L Chloride 100 (98-107) mmol/L Carbon Dioxide 26 (22-30) mmol/L BUN 28 H (9-20) mg/dL Creatinine 1.24 (0.66-1.25) mg/dL Glucose 100 H (74-99) mg/dL Calcium 10.2 (8.4-10.2) mg/dL AST 137 H 80 H (17-59) U/L ALT 69 H 67 H (4-49) U/L Alkaline Phosphatase 68 34 L (38-126) U/L Total Protein 6.9 6.2 L (6.3-8.2) g/dL Albumin 4.0 3.4 L (3.5-5.0) g/dL Calcium panel 12/04/20 12/05/20 Range/Units 21:36 05:20 Calcium 10.2 (8.4-10.2) mg/dL Albumin 4.0 3.4 L (3.5-5.0) g/dL Pituitary panel 12/04/20 Range/Units 21:36 Sodium 135 L (137-145) mmol/L Potassium 3.7 (3.5-5.1) mmol/L Chloride 100 (98-107) mmol/L Carbon Dioxide 26 (22-30) mmol/L BUN 28 H (9-20) mg/dL Creatinine 1.24 (0.66-1.25) mg/dL Glucose 100 H (74-99) mg/dL Calcium 10.2 (8.4-10.2) mg/dL Adrenal panel 12/04/20 12/05/20 Range/Units 21:36 05:20 Sodium 135 L (137-145) mmol/L Potassium 3.7 (3.5-5.1) mmol/L Chloride 100 (98-107) mmol/L Carbon Dioxide 26 (22-30) mmol/L BUN 28 H (9-20) mg/dL Creatinine 1.24 (0.66-1.25) mg/dL Glucose 100 H (74-99) mg/dL Calcium 10.2 (8.4-10.2) mg/dL Total Bilirubin 0.9 0.8 (0.2-1.3) mg/dL AST 137 H 80 H (17-59) U/L ALT 69 H 67 H (4-49) U/L Alkaline Phosphatase 68 34 L (38-126) U/L Total Protein 6.9 6.2 L (6.3-8.2) g/dL Albumin 4.0 3.4 L (3.5-5.0) g/dL - Imaging CT scan - abdomen: report reviewed, image reviewed CT scan - pelvis: report reviewed, image reviewed Assessment and Plan Assessment: Impression: Urinary tract infection. Large prostate with minimal urinary symptoms. Left renal stone. Recommendations: I agree with antibiotics. The patient does not want nor do I recommend at this point in time treatment to the symptomatic stone. He has had treatment for the large prostate in the past. He be following with his urologist when he returns [place] this winter. Nothing further needs to be done urologically during this admission. Time with Patient: Greater than 30
[2020-12-05] MEDS: LATANOPROST 0.005% OPHTH DROPS 2.5 ML BTL BOTH EYES SCH (20:53)
[2020-12-05] MEDS: ATORVASTATIN 20 MG TAB PO SCH (20:53)
[2020-12-05] MEDS: HEPARIN SODIUM,PORCINE/PF 5,000 UNIT/0.5 ML SYRINGE SQ SCH (21:23)
[2020-12-05] MEDS: FAMOTIDINE 20 MG/2 ML VIAL IV SCH (21:23)
[2020-12-05 22:14] LABS: Hepatitis A Antibody IgM Nonreactive (Nonreactive); Hepatitis B Core IgM Nonreactive (Nonreactive); Hepatitis B Surface Antigen Nonreactive (Nonreactive); Hepatitis C IgG Antibody Nonreactive (Nonreactive)
[2020-12-06 05:54] LABS: HCT 38.9 % (39.0-53.0); MCH 28.1 pg (25.0-35.0); MCHC 32.2 g/dL (31.0-37.0); MCV 87.2 fL (80.0-100.0); Mean Platelet Volume 8.1; Platelet Count 155 k/uL (150-450); RBC 4.47 m/uL (4.30-5.90); RDW 14.4 % (11.5-15.5); WBC 8.2 k/uL (3.8-10.6)
[2020-12-06 06:15] LABS: ALT 62 U/L (4-49); AST 66 U/L (17-59); African American GFR (CKD) 77 (>60 ml/min/1.73 sqM); Albumin 2.8 g/dL (3.5-5.0); Albumin/Globulin Ratio 1.1; Alkaline Phosphatase 41 U/L (38-126); Anion Gap 3 mmol/L; Bilirubin,Unconjugated 0.3 mg/dL (0.0-1.1); Blood Urea Nitrogen 23 mg/dL (9-20); Calcium 8.2 mg/dL (8.4-10.2); Carbon Dioxide 28 mmol/L (22-30); Chloride 105 mmol/L (98-107); Globulin 2.5 g/dL; Glucose 96 mg/dL (74-99); Non-African American GFR(CKD) 67 (>60 ml/min/1.73 sqM); Potassium 3.8 mmol/L (3.5-5.1); Sodium 136 mmol/L (137-145); Total Bilirubin 0.5 mg/dL (0.2-1.3); Total Protein 5.3 g/dL (6.3-8.2)
[2020-12-06 06:17] LABS: HGB 12.5 gm/dL (13.0-17.5)
[2020-12-06 06:56] LABS: Lymphocytes # (M) 1.48 k/uL (1.0-4.8); Monocytes # (M) 0.82 k/uL (0-1.0); Neutrophils % (M) 72 %; Nucleated Red Blood Cells 0 /100 WBC (0-0); Total Cells Counted 100
[2020-12-06] MEDS: ZINC SULFATE 220 MG CAP PO SCH (08:28)
[2020-12-06] MEDS: FAMOTIDINE 20 MG/2 ML VIAL IV SCH (08:28)
[2020-12-06] MEDS: HEPARIN SODIUM,PORCINE/PF 5,000 UNIT/0.5 ML SYRINGE SQ SCH ×2 (08:28→20:49)
[2020-12-06] MEDS: MAGNESIUM OXIDE 400 MG TAB PO SCH (08:29)
[2020-12-06] MEDS: DOCUSATE 100 MG CAP PO SCH (08:29)
[2020-12-06] MEDS: TIMOLOL 0.5% OPHTH DROPS 5 ML BTL BOTH EYES SCH ×2 (08:29→20:53)
[2020-12-06] MEDS: hydroCHLOROthiazide 12.5 MG CAP PO SCH (08:29)
[2020-12-06] MEDS: lisinopriL 10 MG TAB PO SCH (08:29)
[2020-12-06] MEDS: FINASTERIDE 5 MG TAB PO SCH (08:29)
[2020-12-06] MEDS: DICLOFENAC SODIUM GEL 100 GM TUBE TOPICAL SCH ×4 (08:38→20:52)
[2020-12-06] MEDS: SODIUM CHLORIDE 0.9% 1,000 ML IV SCH ×3 (09:04→20:57)
--- NOTE | 2020-12-06 14:07 | P.PN ---
Subjective This is a pleasant 85 years old male with past medical history of COPD, Hyperlipidemia, Hypertension, Sleep Apnea/CPAP/BIPAP Patient presents because of shaking and chills of one-day duration. He vomited twice in the car coming to the hospital with no blood. He denies abdominal pain. He had no bowel movement since yesterday. Patient reports difficulty in voiding with dysuria for the last 3-4 days. No abdominal pain or back pain. He denies dyspnea. Has chronic cough with phlegm with no recent worsening as he describes. He denies chest pain He denies smoking, alcohol or illicit drugs He knows about his enlarged prostate and he follows up with urologist on [address] office Walking with no difficulties with no focal Vitals are stable. Blood pressure is low normal He uses CPAP machine at home but it is broken recently Labs showing mild leukocytosis of 12.0 INR is normal, BMP is unremarkable. Liver enzymes are slightly elevated with AST 137 and ALT 69 Urine analysis is suspicious for infection. Urine culture is pending. Coronav irus not detected CT of the abdomen and pelvis: Markedly enlarged prostate suggestive of a tumor. Mild urinary bladder wall thickening suggestive of some nonspecific cystitis. Non-obstructing left renal calculus EKG shows sinus tachycardia and 110 with first degree AV block and no significant ST-T changes. QTC is 433 chest x-ray: Atelectasis in the left lung base In the emergency room patient received ceftriaxone and normal saline 12/06/2020 Patient clinically is improving gradually Vitals and labs are stable. Hemoglobin going down and WBC came back to normal, WBC is 8.2k today, there might be any elements of hemodilution as well Urine culture is growing gram-negative bacilli His blood pressure is improving and we can lower his normal sling to 100 mL per hour Objective - Vital Signs Vital signs: Vital Signs Temp 98.6 F 12/06/20 12:09 Pulse 64 12/06/20 12:09 Resp 20 12/06/20 12:09 BP 111/68 12/06/20 12:09 Pulse Ox 98 12/06/20 12:09 Intake & Output 12/05/20 12/06/20 12/06/20 18:59 06:59 18:59 Intake Total 1560 Balance 1560 Intake: Intake, IV Titration 1560 Amount Sodium Chloride 0.9% 1, 1560 000 ml @ 130 mls/hr IV . Q7H42M [facility] Rx#:[id number] Other: Voiding Method Toilet Toilet Toilet Diaper Diaper # Voids 3 2 - Exam GENERAL: The patient is alert and oriented x3, not in any acute distress. Well developed, well nourished. HEENT: Pupils are round and equally reacting to light. EOMI. No scleral icterus. No conjunctival pallor. Normocephalic, atraumatic. No pharyngeal erythema. No thyromegaly. CARDIOVASCULAR: S1 and S2 present. No murmurs, rubs, or gallops. PULMONARY: Chest is clear to auscultation, no wheezing or crackles. ABDOMEN: Soft, nontender, nondistended, normoactive bowel sounds. No palpable organomegaly. MUSCULOSKELETAL: No joint swelling or deformity. EXTREMITIES: No cyanosis, clubbing, or pedal edema. NEUROLOGICAL: Gross neurological examination did not reveal any focal deficits. SKIN: No rashes. no petechiae. - Labs CBC & Chem 7: 12/06/20 05:23 12/06/20 05:23 Labs: Abnormal Lab Results - Last 24 Hours (Table) 12/06/20 12/06/20 Range/Units 05:23 05:23 Hgb 12.5 L D (13.0-17.5) gm/dL Hct 38.9 L (39.0-53.0) % Sodium 136 L (137-145) mmol/L BUN 23 H (9-20) mg/dL Calcium 8.2 L (8.4-10.2) mg/dL AST 66 H (17-59) U/L ALT 62 H (4-49) U/L Total Protein 5.3 L (6.3-8.2) g/dL Albumin 2.8 L (3.5-5.0) g/dL Microbiology - Last 24 Hours (Table) 12/05/20 01:15 Blood Culture - Preliminary Blood No Growth after 24 hours 12/05/20 01:30 Blood Culture - Preliminary Blood No Growth after 24 hours 12/04/20 21:36 Urine Culture - Preliminary Urine,Voided Gram Neg Bacilli
[2020-12-06] MEDS: ATORVASTATIN 20 MG TAB PO SCH (20:48)
[2020-12-06] MEDS: FAMOTIDINE 20 MG TAB PO SCH (20:49)
[2020-12-06] MEDS: LATANOPROST 0.005% OPHTH DROPS 2.5 ML BTL BOTH EYES SCH (20:49)
[2020-12-07] MEDS: SODIUM CHLORIDE 0.9% 1,000 ML IV SCH (06:37)
[2020-12-07 07:56] LABS: ALT 52 U/L (4-49); AST 52 U/L (17-59); African American GFR (CKD) >90 (>60 ml/min/1.73 sqM); Albumin 2.9 g/dL (3.5-5.0); Albumin/Globulin Ratio 1.1; Alkaline Phosphatase 51 U/L (38-126); Anion Gap 6 mmol/L; Blood Urea Nitrogen 15 mg/dL (9-20); Calcium 8.3 mg/dL (8.4-10.2); Carbon Dioxide 27 mmol/L (22-30); Chloride 104 mmol/L (98-107); Globulin 2.6 g/dL; Glucose 102 mg/dL (74-99); Non-African American GFR(CKD) 85 (>60 ml/min/1.73 sqM); Potassium 3.7 mmol/L (3.5-5.1); Sodium 137 mmol/L (137-145); Total Bilirubin 0.6 mg/dL (0.2-1.3); Total Protein 5.5 g/dL (6.3-8.2)
[2020-12-07 08:08] LABS: Basophils % (A) 1 %; Eosinophils # (A) 0.2 k/uL (0-0.7); Eosinophils % (A) 2 %; HCT 39.5 % (39.0-53.0); Lymphocytes # (A) 1.1 k/uL (1.0-4.8); Lymphocytes % (A) 16 %; MCH 28.2 pg (25.0-35.0); MCHC 32.8 g/dL (31.0-37.0); Mean Platelet Volume 8.3; Monocytes # (A) 0.6 k/uL (0-1.0); Monocytes % (A) 9 %; Neutrophils # (A) 4.6 k/uL (1.3-7.7); Neutrophils % (A) 68 %; Platelet Count 144 k/uL (150-450); RBC 4.59 m/uL (4.30-5.90); WBC 6.8 k/uL (3.8-10.6)
[2020-12-07] MEDS: DICLOFENAC SODIUM GEL 100 GM TUBE TOPICAL SCH ×4 (09:51→20:58)
[2020-12-07] MEDS: hydroCHLOROthiazide 12.5 MG CAP PO SCH (09:52)
[2020-12-07] MEDS: HEPARIN SODIUM,PORCINE/PF 5,000 UNIT/0.5 ML SYRINGE SQ SCH ×2 (09:52→20:57)
[2020-12-07] MEDS: FINASTERIDE 5 MG TAB PO SCH (09:52)
[2020-12-07] MEDS: ZINC SULFATE 220 MG CAP PO SCH (09:52)
[2020-12-07] MEDS: FAMOTIDINE 20 MG TAB PO SCH ×2 (09:52→20:57)
[2020-12-07] MEDS: DOCUSATE 100 MG CAP PO SCH (09:52)
[2020-12-07] MEDS: MAGNESIUM OXIDE 400 MG TAB PO SCH (09:52)
[2020-12-07] MEDS: lisinopriL 10 MG TAB PO SCH (09:52)
[2020-12-07] MEDS: TIMOLOL 0.5% OPHTH DROPS 5 ML BTL BOTH EYES SCH ×2 (09:53→20:57)
--- NOTE | 2020-12-07 15:45 | P.PN ---
Subjective This is a pleasant 85 years old male with past medical history of COPD, Hyperlipidemia, Hypertension, Sleep Apnea/CPAP/BIPAP Patient presents because of shaking and chills of one-day duration. He vomited twice in the car coming to the hospital with no blood. He denies abdominal pain. He had no bowel movement since yesterday. Patient reports difficulty in voiding with dysuria for the last 3-4 days. No abdominal pain or back pain. He denies dyspnea. Has chronic cough with phlegm with no recent worsening as he describes. He denies chest pain He denies smoking, alcohol or illicit drugs He knows about his enlarged prostate and he follows up with urologist on [address] office Walking with no difficulties with no focal Vitals are stable. Blood pressure is low normal He uses CPAP machine at home but it is broken recently Labs showing mild leukocytosis of 12.0 INR is normal, BMP is unremarkable. Liver enzymes are slightly elevated with AST 137 and ALT 69 Urine analysis is suspicious for infection. Urine culture is pending. Coronav irus not detected CT of the abdomen and pelvis: Markedly enlarged prostate suggestive of a tumor. Mild urinary bladder wall thickening suggestive of some nonspecific cystitis. Non-obstructing left renal calculus EKG shows sinus tachycardia and 110 with first degree AV block and no significant ST-T changes. QTC is 433 chest x-ray: Atelectasis in the left lung base In the emergency room patient received ceftriaxone and normal saline 12/06/2020 Patient clinically is improving gradually Vitals and labs are stable. Hemoglobin going down and WBC came back to normal, WBC is 8.2k today, there might be any elements of hemodilution as well Urine culture is growing gram-negative bacilli His blood pressure is improving and we can lower his normal sling to 100 mL per hour 12/07/2020 Patient's symptoms improving. Based on antibiotic for UTI We will repeat urine analysis to decide about the discharge antibiotics as his symptoms are significantly improved Possible discharge in 24-48 hours Objective - Vital Signs Vital signs: Vital Signs Temp 98.5 F 12/07/20 12:11 Pulse 65 12/07/20 12:11 Resp 17 12/07/20 12:11 BP 129/76 12/07/20 12:11 Pulse Ox 95 12/07/20 12:11 Intake & Output 10/08/21 10/09/21 10/09/21 18:59 06:59 18:59 Intake Total 1200 1300 Output Total 850 Balance 1200 450 Intake: Intake, IV Titration 1200 1300 Amount Sodium Chloride 0.9% 1, 1200 1200 000 ml @ 100 mls/hr IV . Q10H CHRISTELLE Rx#:[id number] cefTRIAXone 1 gm In 100 Sodium Chloride 0.9% 50 ml @ 100 mls/hr IVPB Q24HR CHRISTELLE Rx#:[id number] Output: Urine 850 Other: Voiding Method Toilet Toilet Toilet Diaper Urinal Urinal Diaper Diaper # Voids 2 2 - Exam GENERAL: The patient is alert and oriented x3, not in any acute distress. Well developed, well nourished. HEENT: Pupils are round and equally reacting to light. EOMI. No scleral icterus. No conjunctival pallor. Normocephalic, atraumatic. No pharyngeal erythema. No thyromegaly. CARDIOVASCULAR: S1 and S2 present. No murmurs, rubs, or gallops. PULMONARY: Chest is clear to auscultation, no wheezing or crackles. ABDOMEN: Soft, nontender, nondistended, normoactive bowel sounds. No palpable organomegaly. MUSCULOSKELETAL: No joint swelling or deformity. EXTREMITIES: No cyanosis, clubbing, or pedal edema. NEUROLOGICAL: Gross neurological examination did not reveal any focal deficits. SKIN: No rashes. no petechiae. - Labs CBC & Chem 7: 12/07/20 07:13 12/07/20 07:13 Labs: Abnormal Lab Results - Last 24 Hours (Table) 12/07/20 12/07/20 Range/Units 07:13 07:13 Plt Count 144 L (150-450) k/uL Glucose 102 H (74-99) mg/dL Calcium 8.3 L (8.4-10.2) mg/dL ALT 52 H (4-49) U/L Total Protein 5.5 L (6.3-8.2) g/dL Albumin 2.9 L (3.5-5.0) g/dL Microbiology - Last 24 Hours (Table) 12/05/20 01:30 Blood Culture - Preliminary Blood No Growth after 48 hours 12/05/20 01:15 Blood Culture - Preliminary Blood No Growth after 48 hours 12/04/20 21:36 Urine Culture - Final Urine,Voided Escherichia coli Assessment and Plan Assessment: Acute urinary tract infection Left nonobstructing renal calculus Enlarged prostate Hyperlipidemia Hypertension History of sleep apnea on CPAP/BiPAP COPD, not acute exacerbation Plan: this is a pleasant 85 years old male who presents with UTI Continue with ceftriaxone, discontinue IV fluids hydration and follow-up urine cultures urology consult Labs and medication were reviewed.. Continue same treatment. Continue with symptomatic treatment. Resume home medication. Monitor lytes and vitals. DVT and GI prophylaxis. Further recommendations depends on the clinical course of the patient DVT prophylaxis: Subcutaneous heparin GI Prophylaxis: Pepcid PT/OT: Pending Prognosis is guarded
[2020-12-07 17:45] LABS: Appearance,Urine Clear (Clear); Bilirubin,Urine Negative (Negative); Blood,Urine Trace (Negative); Color,Urine Light Yellow; Glucose,Urine (UA) Negative (Negative); Ketones,Urine Negative (Negative); Leukocyte Esterase,Urine Small (Negative); Mucus,Urine Rare /hpf; Nitrite,Urine Negative (Negative); PH, Urine 6.5 (5.0-8.0); Protein,Urine Negative (Negative); RBC,Urine 11 /hpf (0-5); Specific Gravity,Urine 1.007 (1.001-1.035); Urobilinogen,Urine <2.0 mg/dL (<2.0); WBC,Urine 8 /hpf (0-5)
[2020-12-07] MEDS: ATORVASTATIN 20 MG TAB PO SCH (20:57)
[2020-12-07] MEDS: LATANOPROST 0.005% OPHTH DROPS 2.5 ML BTL BOTH EYES SCH (20:58)
[2020-12-08] MEDS: HEPARIN SODIUM,PORCINE/PF 5,000 UNIT/0.5 ML SYRINGE SQ SCH ×2 (07:53→20:55)
[2020-12-08] MEDS: FINASTERIDE 5 MG TAB PO SCH (07:53)
[2020-12-08] MEDS: hydroCHLOROthiazide 12.5 MG CAP PO SCH (07:53)
[2020-12-08] MEDS: DICLOFENAC SODIUM GEL 100 GM TUBE TOPICAL SCH ×4 (07:53→22:07)
[2020-12-08] MEDS: FAMOTIDINE 20 MG TAB PO SCH ×2 (07:54→20:55)
[2020-12-08] MEDS: ZINC SULFATE 220 MG CAP PO SCH (07:54)
[2020-12-08] MEDS: DOCUSATE 100 MG CAP PO SCH (07:54)
[2020-12-08] MEDS: MAGNESIUM OXIDE 400 MG TAB PO SCH (07:54)
[2020-12-08] MEDS: lisinopriL 10 MG TAB PO SCH (07:54)
[2020-12-08] MEDS: TIMOLOL 0.5% OPHTH DROPS 5 ML BTL BOTH EYES SCH ×2 (07:55→21:01)
--- NOTE | 2020-12-08 13:41 | P.PN ---
Subjective This is a pleasant 85 years old male with past medical history of COPD, Hyperlipidemia, Hypertension, Sleep Apnea/CPAP/BIPAP Patient presents because of shaking and chills of one-day duration. He vomited twice in the car coming to the hospital with no blood. He denies abdominal pain. He had no bowel movement since yesterday. Patient reports difficulty in voiding with dysuria for the last 3-4 days. No abdominal pain or back pain. He denies dyspnea. Has chronic cough with phlegm with no recent worsening as he describes. He denies chest pain He denies smoking, alcohol or illicit drugs He knows about his enlarged prostate and he follows up with urologist on [address] office Walking with no difficulties with no focal Vitals are stable. Blood pressure is low normal He uses CPAP machine at home but it is broken recently Labs showing mild leukocytosis of 12.0 INR is normal, BMP is unremarkable. Liver enzymes are slightly elevated with AST 137 and ALT 69 Urine analysis is suspicious for infection. Urine culture is pending. Coronav irus not detected CT of the abdomen and pelvis: Markedly enlarged prostate suggestive of a tumor. Mild urinary bladder wall thickening suggestive of some nonspecific cystitis. Non-obstructing left renal calculus EKG shows sinus tachycardia and 110 with first degree AV block and no significant ST-T changes. QTC is 433 chest x-ray: Atelectasis in the left lung base In the emergency room patient received ceftriaxone and normal saline 12/06/2020 Patient clinically is improving gradually Vitals and labs are stable. Hemoglobin going down and WBC came back to normal, WBC is 8.2k today, there might be any elements of hemodilution as well Urine culture is growing gram-negative bacilli His blood pressure is improving and we can lower his normal sling to 100 mL per hour 12/07/2020 Patient's symptoms improving. Based on antibiotic for UTI We will repeat urine analysis to decide about the discharge antibiotics as his symptoms are significantly improved Possible discharge in 24-48 hours 12/08/2020 Patient today was little sleepy but no different than yesterday. Patient had low-grade fever yesterday 99.8. Gallbladder urine culture is going sensitive E. coli ceftriaxone week. Probably because patient is still have a large prostate and nonobstructive left kidney stone We will increase the dose of ceftriaxone to 2 g daily. Discussed with bed side nurse Objective - Vital Signs Vital signs: Vital Signs Temp 97.8 F 12/08/20 12:40 Pulse 65 12/08/20 12:40 Resp 17 12/08/20 12:40 BP 130/84 12/08/20 12:40 Pulse Ox 100 12/08/20 12:40 Intake & Output 12/07/20 12/08/20 12/08/20 18:59 06:59 18:59 Intake Total 240 Balance 240 Intake: Oral 240 Other: Voiding Method Toilet Toilet Toilet Urinal Urinal Urinal Diaper Diaper Diaper # Voids 2 2 - Exam GENERAL: The patient is alert and oriented x3, not in any acute distress. Well developed, well nourished. HEENT: Pupils are round and equally reacting to light. EOMI. No scleral icterus. No conjunctival pallor. Normocephalic, atraumatic. No pharyngeal erythema. No thyromegaly. CARDIOVASCULAR: S1 and S2 present. No murmurs, rubs, or gallops. PULMONARY: Chest is clear to auscultation, no wheezing or crackles. ABDOMEN: Soft, nontender, nondistended, normoactive bowel sounds. No palpable organomegaly. MUSCULOSKELETAL: No joint swelling or deformity. EXTREMITIES: No cyanosis, clubbing, or pedal edema. NEUROLOGICAL: Gross neurological examination did not reveal any focal deficits. SKIN: No rashes. no petechiae. - Labs CBC & Chem 7: 12/07/20 07:13 12/07/20 07:13 Labs: Abnormal Lab Results - Last 24 Hours (Table) 12/07/20 Range/Units 17:00 Urine Blood Trace H (Negative) Ur Leukocyte Esterase Small H (Negative) Urine RBC 11 H (0-5) /hpf Urine WBC 8 H (0-5) /hpf Urine Mucus Rare H (None) /hpf Microbiology - Last 24 Hours (Table) 12/05/20 01:30 Blood Culture - Preliminary Blood No Growth after 72 hours 12/05/20 01:15 Blood Culture - Preliminary Blood No Growth after 72 hours Assessment and Plan Assessment: Acute urinary tract infection secondary to sensitive E. coli Left nonobstructing renal calculus Enlarged prostate Hyperlipidemia Hypertension History of sleep apnea on CPAP/BiPAP COPD, not acute exacerbation Plan: this is a pleasant 85 years old male who presents with UTI Continue with ceftriaxone, and increased dose to 2 g daily urology consult Labs and medication were reviewed.. Continue same treatment. Continue with symptomatic treatment. Resume home medication. Monitor lytes and vitals. DVT and GI prophylaxis. Further recommendations depends on the clinical course of the patient DVT prophylaxis: Subcutaneous heparin GI Prophylaxis: Pepcid PT/OT: Pending Prognosis is guarded
[2020-12-08 18:34] VITALS: TEMP 98.2
[2020-12-08] MEDS: LACTULOSE 20 GM/30 ML CUP PO SCH (20:56)
[2020-12-08] MEDS: ATORVASTATIN 20 MG TAB PO SCH (20:59)
[2020-12-08] MEDS: LATANOPROST 0.005% OPHTH DROPS 2.5 ML BTL BOTH EYES SCH (21:01)
[2020-12-09 04:36] VITALS: RESP 18
[2020-12-09] MEDS: FINASTERIDE 5 MG TAB PO SCH (09:03)
[2020-12-09] MEDS: DOCUSATE 100 MG CAP PO SCH (09:03)
[2020-12-09] MEDS: FAMOTIDINE 20 MG TAB PO SCH (09:03)
[2020-12-09] MEDS: hydroCHLOROthiazide 12.5 MG CAP PO SCH (09:03)
[2020-12-09] MEDS: HEPARIN SODIUM,PORCINE/PF 5,000 UNIT/0.5 ML SYRINGE SQ SCH (09:03)
[2020-12-09] MEDS: LACTULOSE 20 GM/30 ML CUP PO SCH (09:04)
[2020-12-09] MEDS: lisinopriL 10 MG TAB PO SCH (09:04)
[2020-12-09] MEDS: ZINC SULFATE 220 MG CAP PO SCH (09:05)
[2020-12-09] MEDS: MAGNESIUM OXIDE 400 MG TAB PO SCH (09:05)
[2020-12-09] MEDS: DICLOFENAC SODIUM GEL 100 GM TUBE TOPICAL SCH (09:07)
[2020-12-09] MEDS: TIMOLOL 0.5% OPHTH DROPS 5 ML BTL BOTH EYES SCH (09:08)
--- NOTE | 2020-12-09 10:59 | CDI ---
Documentation Clarification Form Date: 12/09/2020 10:25:06 AM From: Dayna Rose RN CCDS Admit Date: 12/05/2020 12:28:00 AM Patient Name: Satya Mendoza Visit Number: [id number] Discharge Date: ATTENTION: The Clinical Documentation Specialists (CDI) and [facility] Coding Staff appreciate your assistance in clarifying documentation. Please respond to the clarification below the line at the bottom and electronically sign. The CDI & [facility] Coding staff will review the response and follow-up if needed. Please note: Queries are made part of the Legal Health Record. If you have any questions, please contact the author of this message via ITS. Dr. Fredi Singh Sepsis is documented ED note, 12/04 but is not noted in subsequent documentation. Clarification is requested. History/Risk Factors: 85-year-old female presents to the ED with shaking and chills for one day duration. The patient has also had difficulty voiding with dysuria for three to four days. Clinical Indicators: VSS: 12/04 Temp 99.6 F, B/P 90/62, HR 110, RR 16 SpO2 91% ra Labs: 12/04 Wbc 12.0, Neutrophils 10.90, Na 135, BUN 28, Glucose 100, Lactic acid 2.7, AST 137, ALT 69. UA: 12/04 Blood - moderate, Nitrate positive, Leukocyte Esterase Large, Wbc >182, Bacteria many, Hyaline casts 12. Urine Culture: 12/04 Escherichia coli Treatment: 12/04 0.9ns 2L bolus. 12/04 d/c 12/07 0.9ns 100cchr, 12/04 Ceftriaxone 2gm IVPB x1, 12/05 d/c 12/08 Ceftriaxone 1gm IVPB Q24HR [facility]RISTELLE, 12/08 Ceftriaxone 1gm IVPB x1, 12/09 to current Ceftriaxone 2gm Q24HR. Please clarify if the Sepsis is: [ ] Sepsis POA confirmed, remains under treatment [ ] Sepsis POA confirmed, resolved [ ] Sepsis ruled out [ ] Other condition, please specify [ ] Unable to determine (Template Last Revised: April 2020) Sepsis, POA from UTI MTDD
[2020-12-09 12:50] VITALS: BP 145/87; PULSE 67
--- NOTE | 2020-12-09 16:43 | P.DS ---
Providers Date of admission: 12/05/20 00:28 Expected date of discharge: 12/09/20 Attending physician: Fredi Singh Consults: 12/05/20 08:19 Consult Physician Urgent Consulting Provider: Ricardo Erickson Consult Reason/Comments: enlarged prostate and kid stone with uti Do you want consulting provider notified?: Yes Primary care physician: Ant Crowder MD Hospital Course: Hospital course This is a pleasant 85 years old male, follows with Dr. Ant Crowder with past medical history of COPD, Hyperlipidemia, Hypertension, Sleep Apnea/CPAP/BIPAP Patient presents because of shaking and chills of one-day duration. He vomited twice in the car coming to the hospital with no blood. He denies abdominal pain. He had no bowel movement since yesterday. Patient reports difficulty in voiding with dysuria for the last 3-4 days. No abdominal pain or back pain. He denies dyspnea. Has chronic cough with phlegm with no recent worsening as he describes. He denies chest pain He denies smoking, alcohol or illicit drugs He knows about his enlarged prostate and he follows up with urologist on [address] office Walking with no difficulties with no focal Vitals are stable. Blood pressure is low normal He uses CPAP machine at home but it is broken recently Admitted with acute UTI with cystitis, with cultures positive for E. coli. Placed on IV ceftriaxone. 12/09/2020: Doing really well today. Good oral intake. Has been ambulatory. No urinary symptoms. No fever no chills. Patient did have a recent cystoscopy. Patient to follow-up this PCP and urologist. Care was discussed questions answered Discussion and discharge planning more than 35 minutes On examination: Afebrile 67, 18, 145/87, 93% on room air Lungs: Clear Cardiovascular first and second sound normal, no edema Abdomen: Soft nontender Psych AO 3 Investigations: WBC 6.8 hemoglobin 13 platelets 144 potassium 3.7 creatinine 0.74 Hepatitis screen negative Coronavirus [PCR]: Not detected Urine culture positive for E. coli Assessment: -Acute UTI with cystitis from E. coli -COPD in a previous smoker -Hyperlipidemia -Hypertension, essential -Obstructive sleep apnea, uses CPAP Disposition: Home Plan - Discharge Summary Discharge Rx Participant: Yes New Discharge Prescriptions: New Cephalexin [Keflex] 500 mg PO Q6HR 1 Days #10 cap Continue Lisinopril [Prinivil] 10 mg PO DAILY hydroCHLOROthiazide [Hydrodiuril] 12.5 mg PO DAILY Timolol 0.5% Ophth Gel Forming [Timoptic-Xe 0.5% Gel Form] 1 drop BOTH EYES DAILY Dutasteride 0.5 mg PO DAILY [place]-3 Fatty Acids [[place]-3] 1,000 mg PO DAILY Simvastatin [Zocor] 40 mg PO HS Docusate [Colace] 100 mg PO DAILY Cyanocobalamin (Vitamin B-12) [Vitamin B-12] 1,000 mcg PO DAILY Cholecalciferol (Vitamin D3) [Vitamin D3 (125 MCG = 5,000 IU)] 125 mcg PO BID Zinc 50 mg PO DAILY Magnesium Oxide [Arambula] 500 mg PO DAILY Latanoprost [Xalatan 0.005%] 1 drop BOTH EYES HS Glucosam/Itz-Msm1/C/Tyrese/Bosw [Whqiqzhwnsx-Xbujnfnydrl-VTO Tb] 1 tab PO BID Discharge Medication List Cholecalciferol (Vitamin D3) [Vitamin D3 (125 MCG = 5,000 IU)] 125 mcg PO BID 12/04/20 [History] Cyanocobalamin (Vitamin B-12) [Vitamin B-12] 1,000 mcg PO DAILY 12/04/20 [History] Docusate [Colace] 100 mg PO DAILY 12/04/20 [History] Dutasteride 0.5 mg PO DAILY 12/04/20 [History] Glucosam/Itz-Msm1/C/Tyrese/Bosw [Joogcnnvvyc-Iwmsgvvmoaa-RIK Tb] 1 tab PO BID 12/04/20 [History] Latanoprost [Xalatan 0.005%] 1 drop BOTH EYES HS 12/04/20 [History] Lisinopril [Prinivil] 10 mg PO DAILY 12/04/20 [History] Magnesium Oxide [Arambula] 500 mg PO DAILY 12/04/20 [History] [place]-3 Fatty Acids [[place]-3] 1,000 mg PO DAILY 12/04/20 [History] Simvastatin [Zocor] 40 mg PO HS 12/04/20 [History] Timolol 0.5% Ophth Gel Forming [Timoptic-Xe 0.5% Gel Form] 1 drop BOTH EYES DAILY 12/04/20 [History] Zinc 50 mg PO DAILY 12/04/20 [History] hydroCHLOROthiazide [Hydrodiuril] 12.5 mg PO DAILY 12/04/20 [History] Cephalexin [Keflex] 500 mg PO Q6HR 1 Days #10 cap 12/09/20 [Rx] Follow up Appointment(s)/Referral(s): Ant Crowder MD [Primary Care Provider] - 1-2 days (The office will call you with an appointment date and time.) Patient Instructions/Handouts: Urinary Tract Infection in Men (DC) Discharge Disposition: HOME SELF-CARE
== END 2020-12-09 13:56 | disposition home or self-care (01) | DRG 872 ==
LOC: EC 20:39 → 5NMEDONC 12-05 00:28
PROVIDERS: ADMIT Hospitalist; ATTEND Hospitalist
DX: A41.51 Sepsis due to Escherichia coli [E. coli] (principal); N30.00 Acute cystitis without hematuria; E87.2 Acidosis; J98.11 Atelectasis; E78.5 Hyperlipidemia, unspecified; I10 Essential (primary) hypertension; G47.33 Obstructive sleep apnea (adult) (pediatric); N40.0 Benign prostatic hyperplasia without lower urinary tract symptoms; Z20.822 Contact with and (suspected) exposure to COVID-19; R19.7 Diarrhea, unspecified; J44.9 Chronic obstructive pulmonary disease, unspecified; N20.0 Calculus of kidney; I44.0 Atrioventricular block, first degree; R00.0 Tachycardia, unspecified; Z87.891 Personal history of nicotine dependence; Z79.899 Other long term (current) drug therapy; Z85.51 Personal history of malignant neoplasm of bladder
CPT/HCPCS: 36415; 71046; 74177; 80048; 80053; 80074; 80076; 81001; 83605; 83735; 84484; 85025; 85610; 85730; 87040; 87077; 87086; 87186; 87635; 93005; 94660; 96361; 96374; 96375; 99285

== ENCOUNTER → 2021-07-24 | Outpatient (CLI) | payer MEDICARE ==
--- NOTE | 2021-07-24 21:25 | SFUN ---
SLEEP CENTER FOLLOW UP NOTE DATE OF SERVICE: 07/24/2021 This 85-year-old gentleman has been followed in Sleep Center for treatment of obstructive sleep apnea-hypopnea syndrome. The patient continues to use his CPAP equipment, getting his CPAP supplies on time. [place] Sleepiness Scale today is 4, which is normal. I checked his CPAP unit. Pressure is 9 cm of water. Usage is 28/30 nights and 17/30 nights for more than 4 hours, average 4.9 hours per night. Leak is 20 L/minute, which is borderline. Apnea-hypopnea index slightly increased to 7.5. MEDICATIONS: Hydrochlorothiazide, niacin, simvastatin. PHYSICAL EXAMINATION: GENERAL: Pleasant patient in no distress. VITAL SIGNS: BP 124/79, HR 80, RR 16, height 5 feet 7-1/2 inches, weight 223 pounds. The patient lost weight in the amount of 10 pounds. Body mass index 34.4, temperature 97.9, oxygen saturation at room air 97%. HEENT: PERRLA, EOMI, evaluation of oropharynx showed tongue protrudes midline. Low position of soft palate; Mallampati III. NECK: Supple, no JVD. Thyroid is not palpable. LUNGS: Clear to percussion and to auscultation. Good air exchange. No wheezing or rhonchi. HEART: S1, S2 regular. No murmurs, gallops, or rubs. ABDOMEN: Obese. EXTREMITIES: No clubbing or cyanosis. VACUUM CLEANER ASSEMBLER: Awake, alert, and oriented X3. Cranial nerves 2 to 7 intact. There is no fasciculation or atrophy. noted. No focal deficits observed. IMPRESSION: 1. Obstructive sleep apnea-hypopnea syndrome. Patient demonstrated borderline compliance with treatment, benefitting from treatment. Apnea-hypopnea index slightly increased. 2. Obesity. 3. Hyperlipidemia. 4. Hypertension. 5. History of bladder carcinoma. 6. Status post prostate surgery. 7. Allergy to dust and pollen. PLAN: 1. I increased pressure in the machine to 10 cm of water. The machine does not have an option for automatic regulation of pressure. 2. Patient will continue to use PAP equipment every night for the whole night. 3. Sleep hygiene with regular time in bed for at least 7-1/2 to 8 hours. 4. Precautions related to driving. No driving if feeling sleepiness. 5. I will maintain all necessary prescription for PAP supplies including mask, tube, filters. 6. Watching weight. 7. Follow-up visit in 6 months or earlier if patient has any problems. Sincerely, Joseph Hay MD, PhD, FAASM Diplomat of [employer] Sleep Medicine Board of [employer] Network Technical Analyst of [facility] [place] KIMBERLY / ROLF: [id number] /
== END ==
LOC: SLEEP 13:00
PROVIDERS: ATTEND Internal Medicine
DX: G47.33 Obstructive sleep apnea (adult) (pediatric) (principal); E66.9 Obesity, unspecified; E78.5 Hyperlipidemia, unspecified; I10 Essential (primary) hypertension; Z91.09 Other allergy status, other than to drugs and biological substances; Z99.89 Dependence on other enabling machines and devices; Z79.899 Other long term (current) drug therapy

== ENCOUNTER → 2021-11-27 | Outpatient (CLI) | payer MEDICARE ==
--- NOTE | 2021-11-27 11:56 | P.PN ---
Subjective DATE: 11/27/2021 FOLLOW UP VISIT. Patient with obstructive sleep apnea hypopnea syndrome return to sleep center for follow-up visit. Information from previous visit have been reviewed. Patient is using PAP equipment every night for the whole night, getting PAP supplies in time. The patient does not have significant problems with the mask, PAP unit and humidification. [place] sleepiness scale is normal 6. I checked information from PAP unit. PAP unit pressure 5-12 cm, average 11.6 cm H2O. I changed pressure during previous visit because apnea-hypopnea index was increased. Usage is 96 % for more then 4 hours, average 5.7 hours per night. Leak is increased to 45 l/m. Apnea Hypopnea Index is 4.7, which is normal. MEDICATIONS:1. Hydrochlorothiazide 12.5 mg once a day 2. Lisinopril 10 mg once a day 3. Simvastatin 40 mg once a day 4., Tumsulosin 0.4 mg once a day 5. Timolol and Latanoprost eyedrops During physical exam: GENERAL: A pleasant patient without any distress. VITAL SIGNS: BP 139/86, HR 64, RR 18, weight 233.4, temperature 97.2, oxygen saturation at room air 95 % . HEENT: PERRLA, EOMI.low position of soft palate, Mallapati 3 . NECK: Supple. No JVD. LUNGS: Clear to percussion and to auscultation. Good air exchange. No wheezing or rhonchi. HEART: S1, S2 regular. ABDOMEN: Soft and nontender. Obese EXTREMITIES: No clubbing or cyanosis. STATE SUPERINTENDENT OF SCHOOLS: Awake, alert, and oriented x3. No focal deficit. Impressions: 1. Obstructive sleep apnea-hypopnea syndrome. Patient demonstrated great compliance with treatment, benefiting from treatment. 2. Obesity. 3. Hypertension. 4. Hyperlipidemia. 5. History of bladder carcinoma. 6. Status post prostate surgery. 7. ALLERGIES to dust and pollen. Plan: 1. Continue using PAP equipment every night for the whole night. 2. To change air filter at least 1-2 times per month. 3. PAP unit should stay lower then position of the head. 4. Advised patient to remove all remaining water from humidifier canister daily and make it dry after each usage. Refill canister with fresh distilled water before each usage. 5. Sleep hygiene with regular time in bed for at least 8 hours. 6. Precautions related to driving. No driving if feel any sleepiness. 7. I will maintain prescription for PAP supplies including mask, tube, filters. 8. Follow up visit in 6 months or earlier if patient has any problems. 9. Watching and losing weight. Thank you very much for allowing me to participate in the management of your patient. Joseph Hay MD, PhD, FAASM. Diplomat of [place] [employer], Sleep Medicine Board by [place] [employer] Computer Aided Design Technician of [facility] [place]
== END | disposition home or self-care (01) ==
LOC: SLEEP 11:08
PROVIDERS: ATTEND Internal Medicine
DX: G47.33 Obstructive sleep apnea (adult) (pediatric) (principal); E66.9 Obesity, unspecified; E78.5 Hyperlipidemia, unspecified; I10 Essential (primary) hypertension; Z88.8 Allergy status to other drugs, medicaments and biological substances; Z85.51 Personal history of malignant neoplasm of bladder; Z90.79 Acquired absence of other genital organ(s); Z99.89 Dependence on other enabling machines and devices

== ENCOUNTER → 2022-07-16 | Outpatient (CLI) | payer MEDICARE ==
--- NOTE | 2022-07-16 12:18 | P.PN ---
Subjective DATE: 07/16/2022 FOLLOW UP VISIT. Patient with obstructive sleep apnea hypopnea syndrome return to sleep center for follow-up visit. Information from previous visit have been reviewed. Patient is using PAP equipment every night for the whole night, getting PAP supplies in time. The patient does not have significant problems with the mask, PAP unit. Patient is using full face mask and feeling dry mouth in the morning. [place] sleepiness scale is 7, which is normal. I checked information from PAP unit. PAP unit pressure 5-12, average 11.9 cm H2O. Usage is 93%, 73% more then 4 hours, average 4.4 hours per night. Leak is 20 l/m, which is in acceptable range. Apnea Hypopnea Index is 3.7, which is normal. MEDICATIONS:1. Hydrochlorothiazide 12.5 mg once a day 2. Lisinopril 10 mg once a day 3. Simvastatin 40 mg once a day 4. Singulair 0.4 mg once a day 5. Timolol eyedrops 6. Latanoprost eyedrops During physical exam: GENERAL: A pleasant patient without any distress. VITAL SIGNS: BP 112/71, HR 64, RR 16 , weight 228, temperature 97.5, oxygen saturation at room air 95 % . HEENT: PERRLA, EOMI.low position of soft palate, Mallapati 3 . NECK: Supple. No JVD. LUNGS: Clear to percussion and to auscultation. Good air exchange. No wheezing or rhonchi. HEART: S1, S2 regular. ABDOMEN: Soft and nontender. Obese EXTREMITIES: No clubbing or cyanosis. HOME VISITOR: Awake, alert, and oriented x3. No focal deficit. I teach patient how to adjust humidity in CPAP unit. Humidity level was increased from level 4 the level 6. Impressions: 1. Obstructive sleep apnea-hypopnea syndrome. Patient demonstrated great compliance with treatment, benefiting from treatment. 2. Obesity, BMI 34.8, patient lost weight on 5 pounds comparing with previous visit. 3. Hypertension. 4. History of bladder cancer. 5. Status post prostate surgery. 6. Hyperlipidemia. 7. Increased eye pressure. 8. ALLERGIES to dust and pollen. Plan: 1. Continue using PAP equipment every night for the whole night. 2. To change air filter at least 1-2 times per month. 3. PAP unit should stay lower then position of the head. 4. Advised patient to remove all remaining water from humidifier canister daily and make it dry after each usage. Refill canister with fresh distilled water before each usage. 5. Sleep hygiene with regular time in bed for at least 8 hours. 6. Precautions related to driving. No driving if feel any sleepiness. 7. I will maintain prescription for PAP supplies including mask, tube, filters. 8. Watching and continue losing weight. 9. Follow up visit in 6 months or earlier if patient has any problems. Thank you very much for allowing me to participate in the management of your patient. Joseph Hay MD, PhD, FAASM. Diplomat of [place] [employer], Sleep Medicine Board by [place] [employer] Contractor General Building of [facility] [place]
== END ==
LOC: SLEEP 11:38
PROVIDERS: ATTEND Internal Medicine
DX: G47.33 Obstructive sleep apnea (adult) (pediatric) (principal); E66.9 Obesity, unspecified; Z68.34 Body mass index [BMI] 34.0-34.9, adult; I10 Essential (primary) hypertension; Z98.890 Other specified postprocedural states; E78.5 Hyperlipidemia, unspecified; Z99.89 Dependence on other enabling machines and devices; Z79.899 Other long term (current) drug therapy
CPT/HCPCS: 99212

== ENCOUNTER → 2023-07-22 | Outpatient (CLI) | payer MEDICARE ==
[2023-07-22 12:11] VITALS: BP 135/80; PULSE 68; RESP 16; TEMP 98.2
--- NOTE | 2023-07-22 12:11 | P.PROGSL ---
Subjective DATE: 07/22/2023 FOLLOW UP VISIT. Patient with obstructive sleep apnea hypopnea syndrome return to sleep center for follow-up visit. Information from previous visit have been reviewed. Patient is using PAP equipment every night for the whole night, getting PAP supplies in time. The patient does not have significant problems with the mask, PAP unit and humidification. [place] sleepiness scale is 5, which is in normal range. I checked information from PAP unit. PAP unit pressure 5-12, average 11.6 cm H2O. Usage is every night for more then 4 hours, average 5.2 hours per night. Leak is 25 l/m, which is in acceptable range. Apnea Hypopnea Index is 3.0, which is normal. Sometimes patient feels dryness in his mouth. He is using fullface mask MEDICATIONS: Please see below During physical exam: GENERAL: A pleasant patient without any distress. VITAL SIGNS: Please see below, weight 230 pounds, BMI 35.4. HEENT: PERRLA, EOMI.low position of soft palate, Mallapati 3 . NECK: Supple. No JVD. LUNGS: Clear to percussion and to auscultation. Good air exchange. No wheezing or rhonchi. HEART: S1, S2 regular. ABDOMEN: Soft and nontender. Obese EXTREMITIES: No clubbing or cyanosis. LEAD HOUSEKEEPER: Awake, alert, and oriented x3. No focal deficit. Impressions: 1. Obstructive sleep apnea-hypopnea syndrome. Patient demonstrated great compliance with treatment, benefiting from treatment. 2. Obesity, BMI 35.4, patient lost 4 pounds comparing with previous visit. 3. Hypertension. 4. Hyperlipidemia. 5. Allergies to pollen and dust. 6. History of bladder cancer. 7. Status post prostate surgery. 8. Increased eye pressure. I explained to the patient how to adjust level of humidity in CPAP unit. Level of humidity was adjusted to the level of 6. Temperature in the tube was increased to 80 degree to prevent condensation. Plan: 1. Continue using PAP equipment every night for the whole night. 2. To change air filter at least 1-2 times per month. 3. PAP unit should stay lower then position of the head. 4. Advised patient to remove all remaining water from humidifier canister daily and make it dry after each usage. Refill canister with fresh distilled water before each usage. 5. Sleep hygiene with regular time in bed for at least 8 hours. 6. Precautions related to driving. No driving if feel any sleepiness. 7. I will maintain prescription for PAP supplies including mask, tube, filters. 8. Watching and losing weight. 9. Follow up visit in 6 months or earlier if patient has any problems. Thank you very much for allowing me to participate in the management of your patient. Joseph Hay MD, PhD, FAASM. Diplomat of [employer], Sleep Medicine Board by [employer]boat Operator [facility] [place] Objective - Vital Signs Vital Signs: Vital Signs Temp 98.2 F 07/22/23 11:34 Pulse 68 07/22/23 11:34 Resp 16 07/22/23 11:34 BP 135/80 07/22/23 11:34 Pulse Ox 94 L 07/22/23 11:34 FiO2 Intake & Output 07/21/23 07/22/23 07/22/23 18:59 06:59 18:59 Weight 104.326 kg Home Medications: Home Medications Medication Instructions Recorded Confirmed Type Cholecalciferol (Vitamin D3) 125 mcg PO BID 12/04/20 12/04/20 History [Vitamin D3 (125 MCG = 5,000 IU)] Cyanocobalamin (Vitamin B-12) 1,000 mcg PO DAILY 12/04/20 07/22/23 History [Vitamin B-12] Docusate [Colace] 100 mg PO DAILY 12/04/20 07/22/23 History Dutasteride 0.5 mg PO DAILY 12/04/20 07/22/23 History Glucosam/Izt-Msm1/C/Tyrese/Bosw 1 tab PO BID 12/04/20 07/22/23 History [Cxxurnnbikk-Iageewwrcko-ZYS Tb] Latanoprost [Xalatan 0.005%] 1 drop BOTH EYES HS 12/04/20 07/22/23 History Magnesium Oxide [Arambula] 500 mg PO DAILY 12/04/20 07/22/23 History [place]-3 Fatty Acids [[place]-3] 1,000 mg PO DAILY 12/04/20 12/04/20 History Simvastatin [Zocor] 40 mg PO HS 12/04/20 07/22/23 History Timolol 0.5% Ophth Gel Forming 1 drop BOTH EYES DAILY 12/04/20 07/22/23 History [Timoptic-Xe 0.5% Gel Form] Zinc 50 mg PO DAILY 12/04/20 12/04/20 History hydroCHLOROthiazide [Hydrodiuril] 12.5 mg PO DAILY 12/04/20 07/22/23 History lisinopriL [Prinivil] 10 mg PO DAILY 12/04/20 07/22/23 History Cephalexin [Keflex] 500 mg PO Q6HR 1 Days #10 cap 12/09/20 Rx Ascorbic Acid [Vitamin C] 500 mg PO BID 07/22/23 07/22/23 History
== END ==
LOC: 3 N SLEEP 11:08
PROVIDERS: ATTEND Internal Medicine
DX: G47.33 Obstructive sleep apnea (adult) (pediatric) (principal); E66.9 Obesity, unspecified; I10 Essential (primary) hypertension; E78.5 Hyperlipidemia, unspecified; H40.059 Ocular hypertension, unspecified eye; Z99.89 Dependence on other enabling machines and devices; Z98.890 Other specified postprocedural states; Z85.51 Personal history of malignant neoplasm of bladder; Z91.048 Other nonmedicinal substance allergy status; Z91.09 Other allergy status, other than to drugs and biological substances; Z68.35 Body mass index [BMI] 35.0-35.9, adult; Z79.899 Other long term (current) drug therapy
CPT/HCPCS: 99212

== ENCOUNTER → 2024-07-19 | Outpatient (CLI) | payer MEDICARE ==
[2024-07-19 10:30] VITALS: BP 118/83; PULSE 64; RESP 16; TEMP 98
--- NOTE | 2024-07-19 11:14 | P.PROGSL ---
Subjective DATE: 07/19/2024 FOLLOW UP VISIT. Patient with obstructive sleep apnea hypopnea syndrome return to sleep center for follow-up visit. Information from previous visit have been reviewed. Patient is using PAP equipment every night for the whole night, getting PAP supplies in time. The patient does not have significant problems with the mask, PAP unit and humidification. [place] sleepiness scale is 5, which is normal. I checked PAP unit, cover for air filter broken. PAP unit pressure 5-12, average 9.4 cm H2O. Usage is 90% for more then 4 hours, average 4.6 hours per night. Leak is 14 l/m, which is in acceptable range. Apnea Hypopnea Index is 1.8, which is normal. MEDICATIONS have been reviewed, please see below. During physical exam: GENERAL: A pleasant patient without any distress. VITAL SIGNS: Please see below, weight is 230 lbs. HEENT: PERRLA, EOMI.low position of soft palate, Mallapati 3 . NECK: Supple. No JVD. LUNGS: Clear to percussion and to auscultation. Good air exchange. No wheezing or rhonchi. HEART: S1, S2 regular. ABDOMEN: Soft and nontender. Obese EXTREMITIES: No clubbing or cyanosis. MANAGER PRICING: Awake, alert, and oriented x3. No focal deficit. Impressions: 1. Obstructive sleep apnea-hypopnea syndrome. Patient demonstrated great compliance with treatment, benefiting from treatment. 2. Obesity, BMI 35.4. 3. Hypertension. 4. Hyperlipidemia. 5. History of bladder cancer. 6. Status post prostate surgery. 7. Increased eye pressure. 8. Allergy to pollen and dust. Plan: 1. Continue using PAP equipment every night for the whole night. Prescription to get new cover for filter. 2. Sleep hygiene with regular time in bed for at least 7.5-8 hours 3. PAP unit should stay lower then position of the head. 4. Advised patient to remove all remaining water from humidifier canister daily and make it dry after each usage. Refill canister with fresh distilled water before each usage. 5. Watching and losing weight. 6. Precautions related to driving. No driving if feel any sleepiness. 7. I will maintain prescription for PAP supplies including mask, tube, filters. 8. Follow up visit in 6 months or earlier if patient has any problems. Thank you very much for allowing me to participate in the management of your patient. Joseph Hay MD, PhD, FAASM. Diplomat of [place] [employer], Sleep Medicine Board by [employer] Manufacturing Assistant of [facility] [place] Objective - Vital Signs Vital Signs: Vital Signs Temp 98 F 07/19/24 10:28 Pulse 64 07/19/24 10:28 Resp 16 07/19/24 10:28 BP 118/83 07/19/24 10:28 Pulse Ox 96 07/19/24 10:28 FiO2 Intake & Output 07/18/24 07/19/24 07/19/24 18:59 06:59 18:59 Weight 104.326 kg Home Medications: Home Medications Medication Instructions Recorded Confirmed Type Cholecalciferol (Vitamin D3) 125 mcg PO BID 12/04/20 07/19/24 History [Vitamin D3 (125 MCG = 5,000 IU)] Cyanocobalamin (Vitamin B-12) 1,000 mcg PO DAILY 12/04/20 07/19/24 History [Vitamin B-12] Dutasteride 0.5 mg PO DAILY 12/04/20 07/19/24 History Glucosam/Itz-Msm1/C/Tyrese/Bosw 1 tab PO BID 12/04/20 07/19/24 History [Xyiuwkclqih-Siahxhctuww-DDZ Tb] Latanoprost [Xalatan 0.005%] 1 drop BOTH EYES HS 12/04/20 07/19/24 History Magnesium Oxide [Arambula] 500 mg PO DAILY 12/04/20 07/19/24 History [place]-3 Fatty Acids [[place]-3] 1,000 mg PO DAILY 12/04/20 07/19/24 History Simvastatin [Zocor] 40 mg PO HS 12/04/20 07/19/24 History Timolol 0.5% Ophth Gel Forming 1 drop BOTH EYES DAILY 12/04/20 07/19/24 History [Timoptic-Xe 0.5% Gel Form] Zinc 50 mg PO DAILY 12/04/20 07/19/24 History hydroCHLOROthiazide [Hydrodiuril] 12.5 mg PO DAILY 12/04/20 07/19/24 History lisinopriL [Prinivil] 10 mg PO DAILY 12/04/20 07/19/24 History Ascorbic Acid [Vitamin C] 500 mg PO BID 07/22/23 07/19/24 History
== END ==
LOC: 3 N SLEEP 10:13
PROVIDERS: ATTEND Internal Medicine
DX: G47.33 Obstructive sleep apnea (adult) (pediatric) (principal); E66.9 Obesity, unspecified; I10 Essential (primary) hypertension; E78.5 Hyperlipidemia, unspecified; J30.1 Allergic rhinitis due to pollen; H40.059 Ocular hypertension, unspecified eye; Z85.51 Personal history of malignant neoplasm of bladder; Z98.890 Other specified postprocedural states; Z68.35 Body mass index [BMI] 35.0-35.9, adult; Z99.89 Dependence on other enabling machines and devices
CPT/HCPCS: 99212